=== PATIENT | female | born 1990 | race Caucasian/White ===

== ENCOUNTER 2024-12-20 15:42 | Emergency (ER) | payer BC, SELFPAY ==
--- OUTSIDE RECORDS SUMMARY | 2024-12-20 15:43 | XMS_ITS | Continuity of Care Document ---
Author Name [facility] Organization [facility] Care Team Providers Care Audio Visual Aids Director Name Role Phone [facility] Unavailable Unavailable Problems Combined list of problems from Department of Defense and Veterans Affairs facilities. It does not include entries that were removed or entered in error. 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 Pt received 3rd shot on 12 FEB 2013. Vaccine Information: Name: RabAvert Lot #: [id number] Expiration Date: 12/2014 Pt has successfully completed the prophylactic rabies vaccination series and does not require any additional clinic visits of vaccinations at this time. Pt instructed to return to clinic for any adverse reactions related to the vaccine. Pt verbalized understanding and was discharged in stable condition. DoD bursitis prepatellar Inactive Condition BURSITIS PREPATELLAR: Pt educated on RICE and using NSAID and tylenol, told to discontinue Motrin while on celebrex. Pt verbalized understanding. Pt to RTC if pain persists or becomes worse. DoD gingival recession Inactive Condition G INGIVAL RECESSION: Possibly due to food that got stuck previously, no major defect, Pt managable on NSAIDs. DoD visit for: services physical pre-deployment Active Condition DoD open wound of foot Inactive Condition Do D abdominal pain Inactive Condition abdom inal pain: Pt was given a GI cocktail consisting of viscous lidocaine, pepto bismal, and donnatol. Pt''s symptoms were relieved post ingestion, no issues. Pt was also given Prilosec 20mg PO for reflux. Pt to RTC if symptoms return or become worse. DoD ankle joint pain Active Condition DoD visit for: issue repeat prescription for medication Inactive Condition DoD visit for: screening mental / developmental disorders Inactive Condition DoD visit for: screening exam viral disease Inactive Condition DoD Need For Vaccination Against Combinations Of Diseases Inactive Condition DoD skin disorders appendage hair follicle folliculitis Inactive Condition DoD visit for: screening exam for malignant neoplasm cervix Inactive Condition DoD routine pelvic exam Inactive Condition DoD hidradenitis suppurativa Inactive Condition DoD Patient Counseling: Inactive Condition DoD visit for: occupational health / fitness exam Active Condition DoD refractive error - myopia Active Condition DoD visit for: services physical Inactive Condition DoD assess patient condition work-related occupational disease Active Condition DoD visit for: ears / hearing exam Active Condition DoD Patient Education - Injury Prevention Active Condition DoD visit for: administrative purpose Inactive Condition DoD visit for: routine eye exam Inactive Condition DoD visit for: laboratory Inactive Condition DoD visit for: screening exam pulmonary tuberculosis Inactive Condition DoD Need For Vaccination Against Td Inactive Condition DoD Need For Vaccination Polio Inactivated Inactive Condition DoD Need For Vaccination Against Bacterial Diseases Inactive Condition DoD Need For Vaccination Against Influenza Inactive Condition DoD Need For Vaccination Hepatitis B Inactive Condition DoD Need For Vaccination Hepatitis A Inactive Condition DoD Need For Prophylactic Antibiotics Inactive Condition DoD Allergies, Adverse Reactions, Alerts Combined list of allergies from Department of Defense and Veterans Affairs facilities. It does not include entries that were removed or entered in error. Substance Category Reaction Severity Reaction type Status Date Reported Comments Source PENICILLINS Drug allergy (disorder ) Unknown active 9 [facility] Immunizations Combined list of available immunizations from the Department of Defense and Veterans Affairs facilities. Immunization Series Date Given Administered By Site Reaction Lot Number CVX Code Drug Entry Level Receptionist Status Comments Source COVID-19 (PFIZER), MRNA, LNP-S, PF, 30 MCG/0.3 ML DOSE 2 2020 208 complet ed PFR; [id number]; 1 [facility] COVID-19 (PFIZER), MRNA, LNP-S, PF, 30 MCG/0.3 ML DOSE 1 2020 208 complet ed PFR; [id number]; 1 [facility] anthrax vaccine 6 2016 [id number] [employer] [place] (MIP) complet ed anthrax vaccine DoD Influenza, seasonal, injectable, preservative free 1 2015 [id number] Seqirus (SEQ) comple t ed Influenza , seasonal, injectabl e, preservat sheri free DoD meningococcal polysaccharid e (groups A, C, Y and W-135) diphtheria toxoid conjugate vaccine (MCV4P) 1 2015 [id number] 114 Sanofi Pasteur (PMC) complet ed meningoco ccal polysacch aride (groups A, C, Y and W-135) diphtheri a toxoid conjugate vaccine (MCV4P) DoD anthrax vaccine 5 2014 [id number] 24 [facility] ([facility]) complet ed anthrax vaccine DoD Influenza, seasonal, injectable, preservative free 1 2014 [id number] 140 [facility] [employer]. (CS) complet ed Influenza , seasonal, injectabl e, preservat sheri free DoD poliovirus vaccine, inactivated 1 2014 [id number] 10 Sanofi Pasteur (PMC) complet ed polioviru s vaccine, inactivat ed DoD rabies vaccine, for intramuscular injection RETIRED CODE 3 2014 [id number] 18 Novartis Hyper Weartica StockCast[employer] Marci. (NOV) complet ed rabies vaccine, for intramusc ular injection RETIRED CODE DoD anthrax vaccine 4 2014 [id number] 24 [facility] ([facility]) complet ed anthrax vaccine DoD typhoid Vi capsular polysaccharid e vaccine 1 2014 [id number] 101 Sanofi Pasteur ([facility]) complet ed typhoid Vi capsular polysacch aride vaccine DoD Influenza, seasonal, injectable, preservative free 1 2013 [id number] 140 Novartis Corsa Technology Marci. (NOV) complet ed Influenza , seasonal, injectabl e, preservat sheri free DoD influenza, live, intranasal, quadrivalent 1 2012 [id number] 149 TRONICS GROUP. (MED) complet ed influenza , live, intranasa l, quadrival ent DoD anthrax vaccine 3 2012 [id number] 24 [facility] ([facility]) complet ed anthrax vaccine DoD rabies vaccine, for intramuscular injection RETIRED CODE 2 2012 [id number] 18 Novartis Hyper Weartica StockCast[employer] Marci. (NOV) complet ed rabies vaccine, for intramusc ular injection RETIRED CODE DoD vaccinia (smallpox) vaccine 1 2012 UNK 75 (GENE) complet ed vaccinia (smallpox ) vaccine DoD rabies vaccine, for intramuscular injection RETIRED CODE 1 2012 [id number] 18 Novartis Peerflix. (NOV) complet ed rabies vaccine, for intramusc ular injection RETIRED CODE DoD anthrax vaccine 2 2012 [id number] [facility]) complet ed anthrax vaccine DoD vaccinia (smallpox) vaccine 1 2012 [id number] 75 (GENE) complet ed vaccinia (smallpox ) vaccine DoD anthrax vaccine 1 2011 [id number] 24 [facility] ([facility]) complet ed anthrax vaccine DoD typhoid Vi capsular polysaccharid e vaccine 1 2011 [id number] 101 Sanofi Pasteur (PMC) complet ed typhoid Vi capsular polysacch aride vaccine DoD Influenza, seasonal, injectable 1 2011 [id number] 141 [employer]. (CSL) complet ed Influenza , seasonal, injectabl e DoD hepatitis A and hepatitis B vaccine 3 2010 [id number] 104 SmithKline (SKB) complet ed hepatitis A and hepatitis B vaccine DoD influenza virus vaccine, live, attenuated, for intranasal use 1 2010 [id number] 111 [employer]ONICS GROUP. (MED) complet ed influenza virus vaccine, live, attenuate d, for intranasa l use DoD hepatitis A and hepatitis B vaccine 2 2010 [id number] 104 SmithKline (SKB) complet ed hepatitis A and hepatitis B vaccine DoD poliovirus vaccine, inactivated 1 2010 [id number] 10 Sanofi Pasteur (PMC) complet ed polioviru s vaccine, inactivat ed DoD influenza virus vaccine, split virus (incl. purified surface antigen)-reti red CODE 1 2010 [id number] 15 Unknown (UNK) comple t ed influenza virus vaccine, split virus (incl. purified surface antigen)- retired CODE DoD varicella virus vaccine 1 2010 UNK 21 Unknown (UNK) Not Given varicella virus vaccine DoD hepatitis A and hepatitis B vaccine 1 2010 [id number] 104 SmithKline (SKB) complet ed hepatitis A and hepatitis B vaccine DoD meningococcal polysaccharid e (groups A, C, Y and W-135) diphtheria toxoid conjugate vaccine (MCV4P) 1 2010 [id number] 114 Sanofi Pasteur (PMC) complet ed meningoco ccal polysacch aride (groups A, C, Y and W-135) diphtheri a toxoid conjugate vaccine (MCV4P) DoD tetanus toxoid, reduced diphtheria toxoid, and acellular pertu is vaccine, adsorbed 1 2010 [id number] 115 Moore (AD) complet ed tetanus toxoid, reduced diphtheri a toxoid, and acellular pertussis vaccine, adsorbed DoD measles, mumps and rubella virus vaccine 1 2010 UNK 03 Unknown (UNK) Not Given measles, mumps and rubella virus vaccine DoD yellow fever vaccine 1 2008 UNK 37 Unknown (UNK) comple t ed yellow fever vaccine DoD Encounters Combined list of: 1) Encounters from Department of Veterans Affairs facilities going backup to the last 18 months, not all VA inpatient encounters are included; 2) Encounters from the Department of Defense facilities going backup to 280 months. Location Location Details Encounter Type Encounter Number Reason For Visit Attending Provider ADM Date DC Date Status Disposition Source [facility] ISIDRO Alvarez(Tunnel Kiln Repairer al [facility] 005) OUTPATIENT [id number] Ronnie TROY Hackett 12/22 Released w/o Limitations [facility] ISIDRO Toro(Inte rnal Medicin e Clinic 57) [facility] EDVIN Flores(Soldie r Readiness Program Center) OUTPATIENT [id number] inproce ssing/t wn rx/flu/ mgc/ipv /tdap/p pd/hcg/ g6pd/hi v/jonathanio CHARLEE Benito 08/30 [facility]ased w/o Limitations [facility] EDVIN Flores(Sold ier Readine ss Program Center) [facility] [place] EDVIN Flores(IEP Hearing Conservat ion Exam) OUTPATIENT [id number] YOEL AYALA 08/30 Released w/o Limitations [facility] [place] [facility] EDVIN Flores(IEP Hearing Conserv ation Exam) [facility] [place] [facility] EDVIN Flores(IEP Optometry ) OUTPATIENT [id number] AKUA TODD 09/14 Released w/o Limitations [facility] [place] [facility] EDVIN Flores(IEP Optomet ry) [facility] [place] [place](Civil Defense Support Team) OUTPATIENT [id number] [facility] 501/11- RESP CLEARAN MANDA ESCALANTE 10/19 Released w/o Limitations [facility] [place] [facility] [place]Civ[place] Defense Support [place]) [facility] [place] [facility] [place]Civil [place] Support [place]) OUTPATIENT [id number] [facility] 501/11 MED-MON ITORING TINGLE, ADOLFO L 10/27 Released w/o Limitations [facility] [place] [facility] [place] [facility] [place] [facility] [place]) OUTPATIENT [id number] [facility] 501/11 Med Monitor ing AMELIA REAL L. 11/06 Released w/o Limitations [facility] [place] [facility] [place] [facility] [place] [facility] [place]) OUTPATIENT [id number] [place] [address]/11 Med Monitor ing TINGLE, ADOLFO L 11/07 Released w/o Limitations [facility] [place] [facility] [place]) [facility] [place] [facility] [place]1CDTF[place] OUTPATIENT [id number] CDTF Screeni MANDA Godwin 11/14 Released w/o Limitations [facility] [place] [facility] [place]1CDT F) [facility] [place]Serge[place]) OUTPATIENT [id number] OLEGARIO MEZA 12/04 Released w/o Limitations [facility] [place] [facility] [place]) [facility] [place] [facility] [place]Obst[place]ics/Gyne cology) OUTPATIENT [id number] NEEDS WWRANDY REYES 12/19 Released w/o Limitations [facility] [place] [facility] [place]Obst [place]/ Gynecol ogy) [facility] Medical Inprocess ing) OUTPATIENT [id number] [facility] KAIA CUTLER 01/18 Released w/o Limitations [facility] SUZANNE Nieves([facility] Medical Inproce ssing) [facility] [place]([facility] Dr) TELE CONSULT [id number] med refill MANDA MORIN 03/05 [facility] SUZANNE Nieves([facility] Dr) [facility] [place]Civil Defense Support Team) OUTPATIENT [id number] TE 13/06-- RESP CLEARAN CE MANDA PEOPLES 03/05 Released w/o Limitations [facility] [place] [place]) [facility] [place]) OUTPATIENT [id number] TECH ESCORT 13/06 MED MONITOR GAVINO MORGAN 03/12 Released w/o Limitations [facility] [place] [facility] [place]) [facility] [place] [facility] [place]) OUTPATIENT [id number] TE 13/06-- MED MONITOR AMELIA BROOKS. 03/20 Released w/o Limitations [facility] [place] [facility] [place] Support [place]) [facility] [place] [facility] [place]) OUTPATIENT [id number] TE 13/06-- MED MONITOR AMELIA BROOKS. 04/02 Released w/o Limitations [facility] [place]) [facility] SUZANNE Nieves([facility] Dr) OUTPATIENT [id number] right ankle pain MANDA MORIN 06/22 Released w/o Limitations [facility] MEDDAC SUZANNE [place]s([facility] Dr) [facility] [place](Hearin g Conservat ion) OUTPATIENT [id number] COURTNEY Mckeon 11/04 Released w/o Limitations [facility] MEDDAC SUZANNE [place](Hear ing Conserv ation) [facility] MED[facility] [place]([facility] Dr) OUTPATIENT [id number] abdomin al pain x4 days CLAY EVANS 11/14 Released w/o Limitations [facility] ANDRZEJDAC SUZANNE [place]([facility] Dr) [facility] MEDDAC SUZANNE [place]s([facility] Dr) OUTPATIENT [id number] ripped sole from both feet KATERINA OLIVAREZ 01/06 Released with Work/Duty Limitations [facility] Dr) [facility] Dr) TELE CONSULT [id number] Notes Entered by: JONAH ARAMBULA 12 May 2012 1134 ------- ------- ------- ------- -- Pt request ing meds refill for DicKAIA Gabriel 05/12 [facility] Dr) [facility] Dr[place] OUTPATIENT [id number] Notes Entered by: AGUILA LINO 25 Jun 2012 1309 ------- ------- ------- ------- -- MARK ANTHONY Lemon 06/25 Released w/o Limitations [place](Opto [place] Dr) [facility] [place] Primary Care) OUTPATIENT [id number] Notes Entered by: FRANCHESCA SANTACRUZ 26 Jun 2012 0623 ------- ------- ------- ------- -- [id number] TYRONE Al 06/26 Released w/o Limitations [facility] Primary [facility]) [facility] [place] Primary Care) OUTPATIENT [id number] Notes Entered by: PEPE ARRINGTON 20 Aug 2012 1313 ------- ------- ------- ------- -- Flu 04 Jun 2012 LARRY MILLER 08/20 Released w/o Limitations [facility] MEDDAC [place] Primary Care) [facility] OUTPATIENT [id number] Theater Provider 10/12 Released w/o Limitations [facility] OUTPATIENT [id number] Theater Provider 01/10 Released w/o Limitations [facility] OUTPATIENT [id number] Theater Provider 02/14 Released w/o Limitations [facility] OUTPATIENT [id number] Theater Provider 04/10 Released w/o Limitations Theater [facility] OUTPATIENT [id number] Theater Provider 04/12 Released w/o Limitations Theater [facility] [place] Primary Care) OUTPATIENT [id number] Notes Entered by: LESLIE FUCHS 09 Jun 2013 1230 ------- ------- ------- ------- -- [facility] KAIA CUTLER 06/09 Released w/o Limitations [facility] MED[facility] [place] Primary Care) [facility]Demet[place] car[place] Conserv[place] OUTPATIENT [id number] Notes Entered by: MELISSA LINDSEY 01 Jul 2013 0913 ------- ------- ------- ------- -- JOSE ANTONIO [place] 07/01 Released w/o Limitations [facility]ear kemi Conserv [place]ion) [facility] Primary Care[place] OUTPATIENT [id number] Notes Entered by: ROSS PINTO 05 Aug 2013 1034 ------- ------- ------- ------- -- JUAN JOSE Mcfadden 08/05 Released w/o Limitations [facility] MEDDAC [place] Primary Care) [facility] [place] Dr) OUTPATIENT [id number] WWE - PCM AMANDA Lauren 09/08 Released w/o Limitations [facility] [place] Dr) [facility] [place]) OUTPATIENT [id number] PADMINI Kelsey 11/17 Released w/o Limitations [facility] [place]Opt[place]) [place](AMHS01 CBlue) OUTPATIENT [id number] Poss BROOKS MEEHANOL 03/16 Released w/o Limitations [facility] [place] 01CBlue ) R. Stuart KHAN [place]AM[place] CBlue[place] OUTPATIENT [id number] menstru al issues RONYJUNAID LORELEI 06/08 Released w/o Limitations [facility] [place] 01CBlue ) [place]) OUTPATIENT [id number] YENNY PARK 07/08 Released w/o Limitations [facility] [place] Hearing [facility] ) [place] C[place] OUTPATIENT [id number] flu RONY JUNAID LORELEI 07/26 Released w/o Limitations Iraj [facility] [place] CBlue ) [place] OUTPAT[place] [id number] Notes Entered by: LAUREN MONTEMAYOR 02 Aug 2014 1017 ------- ------- ------- ------- -- KATHY MARTINEZ 08/02 Released w/o Limitations [facility] [place] [place]) [place]AM[place] C[place] OUTPATIENT [id number] GDBL per pt. anabel Braga (pt. has packet) RONYJUNAID LORELEI 08/03 Released w/o Limitations [facility] [place] 01CBlue ) [place] OUTPATIENT [id number] Notes Entered by: LAUREN MONTEMAYOR 15 Oct 2014 0847 ------- ------- ------- ------- -- KATHY MONIQUE 10/15 Released w/o Same[place] , [place]([facility]) [facility], [place]([facility]) OUTPATIENT [id number] Notes Entered by: SHASHANK PEREZ 27 Dec 2014 1127 ------- ------- ------- ------- -- 2795 JASON CARRANZA PA-C 12/27 Released w/o Limitations [facility], [place]([facility]) [facility], [place]([facility]) OUTPATIENT [id number] Notes Entered by: PAMELLA CRUZ 29 Mar 2015 1038 ------- ------- ------- ------- -- [id number] SINCERE Jonas 03/29 Released w/o Limitations [facility], FLO [place]([facility]) J Carlose dominique [facility], [email or web address] [place](Prim[facility]) OUTPATIENT [id number] FLU SYMPTOM S 5 GRP NELSON PA 04/28 Released w/o Limitations [facility], [place](Prim tressa Care [facility] 5) [facility] [facility], [facility] [[email or web address]] [place](Prim[facility]) TELE CONSULT [id number] Notes Entered by: TREY SARGENT 27 Jul 2015 0922 ------- ------- ------- ------- -- Labs for hx of anemia and hair loss TREY SARGENT 07/27 [facility] [place]([facility]) [facility], [facility] [[email or web address]] [place](Prim[facility]) OUTPATIENT [id number] f/u lab work/09/23 OMAR HAMMOND T 08/24 Released w/o Limitations [facility], [place], [place]([facility]) [facility], [place] [facility]) TELE CONSULT [id number] Notes Entered by: OMAR HAMMOND Iftikhar 29 Aug 2015 1409 ------- ------- ------- ------- -- Lab Results OMAR HAMMOND Iftikhar 08/29 [facility] [place] [place]) [facility], [place] [facility] TELE CONSULT [id number] Notes Entered by: OMAR HAMMOND Iftikhar 06 Sep 2015 1821 ------- ------- ------- ------- -- MRI and US results ELIZABETH AGUILERA 09/07 Released to Self Care [facility], [place]Prim [place]) [facility], [place]) OUTPATIENT [id number] annual KRYSTLE BABCOCK 09/29 Released w/o Limitations [facility], [place] ) [facility], [place]Manager [place] OUTPATIENT [id number] ADILENE KENNY 10/20 Released w/o Limitations [facility], [place] Clinic) Iraj KHAN [place]AMHS01 CBlue) TELE CONSULT [id number] Notes Entered by: MARTI HOLMAN 18 Nov 2015 1426 ------- ------- ------- ------- -- NETWORK RESULTS ENDO 11/03/19 16 ALURY SRIVASTAVA 11/17 [facility] [place]([facility] 01CBlue ) [facility], [place] Optometry ) OUTPATIENT [id number] EDELMIRA LAWRENCE 11/30 Released w/o Limitations [facility], [place] Optomet ry) [facility], [place] Optometry ) OUTPATIENT [id number] F/U DFE EDELMIRA MARQUEZ 12/05 Released w/o Limitations [facility], [place] Optomet ry) [facility], [place] Health Clinic) OUTPATIENT [id number] Notes Entered by: KATELIN REYNOLDS 31 May 2016 1248 ------- ------- ------- ------- -- JESS HUSSEIN 05/31 Released w/o Limitations [facility], [place]([facility] Health Clinic) [facility], [place] [place] [facility]) OUTPATIENT [id number] ADILENE [place] 06/25 Released w/o Limitations [facility], [employer] [place] [facility], [employer] [place]) TELE CONSULT [phone] JOSE ANTONIO WASHINGTON 07/31 [facility], [employer] [place]([facility]) [facility], [employer] [place] OUTPATIENT [id number] part 1 ets INZE RUIZ 09/25 Released w/o Limitations [facility], [employer]) [facility], [employer] [place]) OUTPATIENT [id number] RICARDO Cavazos 09/26 Released w/o Limitations [facility], [employer], [place]([facility] ) [facility], [place], [place]) OUTPATIENT [id number] Part 2 ETS; 3rd BAT JOSE ANTONIO WASHINGTON 10/01 Released w/o Limitations [facility], [place], [place]([facility]) [facility], [place]([facility] OUTPATIENT [id number] Initial Sleep eval KELSEA MENDIOLADESTINEE 10/31 Released w/o Limitations [facility], [place], [place]([facility]) Procedures Combined list of: 1) Procedures from Department of Veterans Affairs facilities going back up to thelast 18 months, not all VA non-surgical procedures are included; 2) All procedures from the Department of Defense facilities. Procedure Procedure Type Code Date Perfomer Comments Sourc e TAPE, WATERPROOF, PER 18 SQUARE INCHES 02/06/20 10 [facility] MEDICATION THERAPY MANAGEMENT SERVICE(S) PROVIDED BY A PHARMACIST, INDIVIDUAL, [id number] WITH PATIENT, WITH ASSESSMENT AND INTERVENTION IF PROVIDED; INITIAL 15 MINUTES, NEW PATIENT 12/23/19 09 [facility] SCREENING PAPANICOLAOU SMEAR; OBTAINING, PREPARING AND CONVEYANCE OF CERVICAL OR VAGINAL SMEAR TO LABORATORY 12/20/19 11 [facility] SCREENING TEST OF VISUAL ACUITY, QUANTITATIVE, BILATERAL 11/15/19 11 [facility] SCREENING TEST OF VISUAL ACUITY, QUANTITATIVE, BILATERAL 09/14/19 11 [facility] AUDIOMETRIC TESTING OF GROUPS 08/30/19 11 [facility] POLIOVIRUS VACCINE, INACTIVATED (IPV), FOR SUBCUTANEOUS OR INTRAMUSCULAR USE 08/30/19 11 [facility] PURE TONE AUDIOMETRY (THRESHOLD), AUTOMATED; AIR ONLY 09/27/19 17 [facility] SCREENING PAPANICOLAOU SMEAR; OBTAINING, PREPARING AND CONVEYANCE OF CERVICAL OR VAGINAL SMEAR TO LABORATORY 06/25/20 16 [facility] SCANNING COMPUTERIZED OPHTHALMIC DIAGNOSTIC IMAGING, POSTERIOR SEGMENT, WITH INTERPRETATION AND REPORT, UNILATERAL OR BILATERAL; OPTIC NERVE 12/06/19 16 [facility] DETERMINATION OF REFRACTIVE STATE 12/01/19 16 [facility] PURE TONE AUDIOMETRY (THRESHOLD), AUTOMATED; AIR ONLY 09/30/19 16 [facility] VIS FUNCT SCREEN,AUTOMAT/SEMI- AUTOMAT BILAT QUANT DETERM VISUAL ACUITY,OCULAR ALIGN,COLOR VISION,PSEUDOISOCHRO MAT PLATES,& FIELD VIS (MAY INC ALL/SOME SCRN DETERM FOR CONTRAST SENSITIV,VIS UND GLARE) 10/16/19 15 [facility] VIS FUNCT SCREEN,AUTOMAT/SEMI- AUTOMAT BILAT QUANT DETERM VISUAL ACUITY,OCULAR ALIGN,COLOR VISION,PSEUDOISOCHRO MAT PLATES,& FIELD VIS (MAY INC ALL/SOME SCRN DETERM FOR CONTRAST SENSITIV,VIS UND GLARE) 08/02/19 15 [facility] PURE TONE AUDIOMETRY (THRESHOLD), AUTOMATED; AIR ONLY 07/08/20 14 [facility] URINE TEST, BY VISUAL COLOR COMPARISON METHODS 03/16/20 14 [facility] FITTING OF SPECTACLES, EXCEPT FOR APHAKIA; MONOFOCAL 11/18/19 14 [facility] SCREENING PAPANICOLAOU SMEAR; OBTAINING, PREPARING AND CONVEYANCE OF CERVICAL OR VAGINAL SMEAR TO LABORATORY 09/09/19 14 [facility] PURE TONE AUDIOMETRY (THRESHOLD); AIR ONLY 07/01/20 13 [facility] COLLECTION OF VENOUS BLOOD BY VENIPUNCTURE 06/09/20 13 [facility] INFLUENZA VIRUS VACCINE, TRIVALENT (IIV3), SPLIT VIRUS, 0.5 ML DOSAGE, FOR INTRAMUSCULAR USE 08/20/19 13 [facility] ANTHRAX VACCINE, FOR SUBCUTANEOUS OR INTRAMUSCULAR USE 08/01/19 13 [facility] SKIN TEST; TUBERCULOSIS, INTRADERMAL 06/26/20 12 [facility] FITTING OF SPECTACLES, EXCEPT FOR APHAKIA; MONOFOCAL 06/25/20 12 [facility] DEBRIDEMENT OF EXTENSIVE ECZEMATOUS OR INFECTED SKIN; UP TO 10% OF BODY SURFACE 01/07/20 12 [facility] EAR PROTECTOR ATTENUATION MEASUREMENTS 11/05/19 12 [facility] INFLUENZA VIRUS VACCINE, TRIVALENT, LIVE (LAIV3), FOR INTRANASAL USE 06/28/20 11 [facility] HEPATITIS A AND HEPATITIS B VACCINE (HEPA-HEPB), ADULT DOSAGE, FOR INTRAMUSCULAR USE 06/18/20 11 [facility] COLLECTION OF VENOUS BLOOD BY VENIPUNCTURE 01/19/20 11 [facility] Threshold Audiogram (Pure Tone) Automated Threshold Audiogram (Pure Tone) Automated [id number] 09/27/19 17 RICARDO SEALS [facility] Screening papanicolaou smear; obtaining, preparing and conveyance of cervical or vaginal smear to laboratory 06/25/20 16 ADILENE COOPER [facility] Wet cammie, including preparations of vaginal, cervical or skin specimens 06/25/20 16 ADILENE COOPER [facility] Scanning Computerized Ophthalmic Diagnostic Imaging Optic Nerve Scanning Computerized Ophthalmic Diagnostic Imaging Optic Nerve 41922 12/07/19 16 EDELMIRA MARQUEZ [facility] Ophthalmological Prior Patient Start Intermediate Level Care Ophthalmological Prior Patient Start Intermediate Level Care 27399 12/07/19 16 EDELMIRA MARQUEZ Prescription And Fitting Bilateral Corneal Lenses (Not For Aphakia) Prescription And Fitting Bilateral Corneal Lenses (Not For Aphakia) 24681 12/01/19 16 EDELMIRA MARQUEZ [facility] Fitting Monofocal Except For Aphakia [facility] Fitting Monofocal Except For Aphakia 96313 12/01/19 16 EDELMIRA MARQUEZ Determination Of Refractive State Determination Of Refractive State 74692 12/01/19 16 EDELMIRA MARQUEZ Ophthalmological New Patient Start Comprehensive Care Ophthalmological New Patient Start Comprehensive Care 95889 12/01/19 16 EDELMIRA MARQUEZ Threshold Audiogram (Pure Tone) Automated Threshold Audiogram (Pure Tone) Automated 0208T 09/30/19 16 KRYSTLE BABCOCK Visual Function Screening Visual Function Screening 82045 10/16/19 15 KATHY MONTEMAYOR RANGER PHY DISTANCE VA'S WITH CORRECTION 20/20 NEAR VA'S WITH CORRECTION 20/20 OD: 20/300 OS: 20/300 COLOR TEST (PIP) 0/14 PASSED Joseph Visual Function Screening Visual Function Screening 85475 08/02/19 15 KATHY MONTEMAYOR AIRBORNE PHY DISTANCE VA'S WITH CORRECTION 20/20 NEAR VA'S WITH CORRECTION 20/20 OD: 20/300 OS: 20/300 COLOR TEST (PIP) 0/14 PASSED [facility] Threshold Audiogram (Pure Tone) Automated Threshold Audiogram (Pure Tone) Automated 0208T 07/08/20 14 YENNY BERRY Wet cammie, including preparations of vaginal, cervical or skin specimens 03/16/20 14 KAYLEN GIANG All pota ium hydroxide (michaela) preparations 03/16/20 14 KARINA GIANGAPHTAE Ruiz [facility] Fitting Monofocal Except For Aphakia [facility] Fitting Monofocal Except For Aphakia 81648 11/18/19 14 PADMINI LUIS Prescription And Fitting Bilateral Corneal Lenses (Not For Aphakia) Prescription And Fitting Bilateral Corneal Lenses (Not For Aphakia) 76189 11/18/19 14 PADMINI LUIS Ophthalmological Prior Patient Start Comprehensive Care Ophthalmological Prior Patient Start Comprehensive Care 99650 11/18/19 14 PADMINI LUIS [facility] Determination Of Refractive State Determination Of Refractive State 81496 11/18/19 14 PADMINI LUIS Cervical Pap Smear Cervical Pap Smear 06540 14 AMANDA IGNACIO Pap smear sample obtained from cervical os Patient tolerated procedure well [facility] Audiometry Group Testing Audiometry Group Testing 35042 07/02/20 13 JOSE ANTONIO CALDERÓN Threshold Audiogram (Pure Tone) Threshold Audiogram (Pure Tone) 95815 07/02/20 13 JOSE ANTONIO CALDERÓN Venipuncture Venipuncture 86668 06/09/20 13 KAIA CUTLER [facility] Influenza Split Virus Vaccine 0.5mL Dosage Intramuscular Preservative Free 06/09/20 13 KAIA CUTLER [facility] Immunization Administration By Injection, One Vaccine Immunization Administration By Injection, One Vaccine 13725 06/09/20 13 KAIA CUTLER [facility] Influenza Split Virus Vaccine 0.5mL Dosage Intramuscular 08/21/19 13 LARRY MILLER [facility] Immunization Administration By Injection, One Vaccine Immunization Administration By Injection, One Vaccine 75838 08/21/19 13 LARRY MILLER [facility] Skin Test Anergy Tuberculin Intradermal Skin Test Anergy Tuberculin Intradermal 92026 06/26/20 12 TYRONE DE LA GARZA [facility] [employer] [facility] Fitting Monofocal Except For Aphakia [facility] Fitting Monofocal Except For Aphakia 60338 06/25/20 12 MARK ANTHONY BUSTAMANTE [facility] Determination Of Refractive State Determination Of Refractive State 36605 06/25/20 12 [place] MARK ANTHONY [facility] Debridement Of Extensively Damaged / Diseased Skin Debridement Of Extensively Damaged / Diseased Skin 20114 01/07/20 12 KELVIN ZEPEDA [facility] Ear Protector Attenuation Measurements Ear Protector Attenuation Measurements 53057 11/05/19 12 COURTNEY ORTIZ [facility] Audiometry Group Testing Audiometry Group Testing 95712 11/05/19 12 COURTNEY ORTIZ [facility] Venipuncture Venipuncture 24674 01/19/20 11 JEIMY LEE Hepatitis A And Hepatitis B (Intramuscular Use) Adult Dosage Hepatitis A And Hepatitis B (Intramuscular Use) Adult Dosage 25821 01/19/20 11 JEIMY LEE Immunization Administration By Injection, One Vaccine Immunization Administration By Injection, One Vaccine 33242 01/19/20 11 JEIMY LEE [facility] Physician Supervised Specimen Handling / Transfer: Office To Lab Physician Supervised Specimen Handling / Transfer: Office To Lab 08164 11/15/19 11 DO KENYON [facility] Venipuncture Venipuncture 43184 11/15/19 11 DO KENYON [facility] Screening Test Of Visual Acuity, Quantitative, Bilateral Screening Test Of Visual Acuity, Quantitative, Bilateral 29124 11/15/19 11 DO KENYON [facility] Screening Test Of Visual Acuity, Quantitative, Bilateral Screening Test Of Visual Acuity, Quantitative, Bilateral 05709 09/15/19 11 CARLITA MITCHELL [facility] Determination Of Refractive State Determination Of Refractive State 29940 09/15/19 11 CARLITA MITCHELL [facility] [facility] Fitting Monofocal Except For Aphakia [facility] Fitting Monofocal Except For Aphakia 31647 09/15/19 11 CARLITA MITCHELL [facility] Audiometry Group Testing Audiometry Group Testing 63268 08/31/19 11 YOEL LAKHANI [facility] Immunization Administration By Injection, One Vaccine Immunization Administration By Injection, One Vaccine 68371 08/30/19 11 [facility] Hepatitis A And Hepatitis B (Intramuscular Use) Adult Dosage Hepatitis A And Hepatitis B (Intramuscular Use) Adult Dosage 62232 08/30/19 11 [facility] Immunization Administration By Injection, Each Additional Vaccine 08/30/19 11 [facility] Influenza Split Virus Vaccine 0.5mL Dosage Intramuscular 08/30/19 11 [facility] Meningococcal (A, C, Y, W-135) Oligosacch Diphtheria Toxoid Conj Vacc 08/30/19 11 [facility] Vaccines Viral Polio, Inactivated Vaccines Viral Polio, Inactivated 17855 08/30/19 11 [facility] Td Vaccine Seven Years Of Age And Above Td Vaccine Seven Years Of Age And Above 84353 08/30/19 11 [facility] Skin Test Anergy Tuberculin Intradermal Skin Test Anergy Tuberculin Intradermal 27224 08/30/19 11 [facility] Venipuncture Venipuncture 62619 08/30/19 11 [facility] Blood drawn for G6PD, HIV, HCG [facility] Screening Test Of Visual Acuity, Quantitative, Bilateral Screening Test Of Visual Acuity, Quantitative, Bilateral 87688 08/30/19 11 STEPHANIE CLAYTON See [facility] for vision exam results. [facility] Health Maint[facility] Unlisted Preventive Medicine Service 73691 08/30/19 11 STEPHANIE CLAYTON [facility] Medication Management By Pharmacist Initial 15 Minutes New Patient Medication Management By Pharmacist Initial 15 Minutes New Patient 19686 12/26/19 09 TROY CLINTON [facility] Social History Combined list of available smoking, tobacco, and other social history from Department of Defense and Veterans Affairs facilities. Social History Type Response Date Comment Sour e This section is an empty social history section. [facility]
--- OUTSIDE RECORDS SUMMARY | 2024-12-20 15:43 | XMS_ITS | Continuity of Care Document ---
Author Name [facility] Organization [facility] Care Team Providers Care Game Designer Name Role Phone [facility] Unavailable Unavailable Problems Combined list of problems from Department of Defense and Veterans Affairs facilities. It does not include entries that were removed or entered in error. 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 Pt received 3rd shot on 12 FEB 2013. Vaccine Information: Name: RabAvert Lot #: [id number] Expiration Date: 12/2014 Pt has successfully completed [...] Drug allergy (disorder ) Unknown active 9 [facility] Immunizations Combined list of available immunizations from the Department of Defense and Veterans Affairs facilities. Immunization Series Date Given Administered By Site Reaction Lot Number CVX Code Drug Principal Product Manager Status Comments Source COVID-19 (PFIZER), MRNA, LNP-S, PF, 30 MCG/0.3 ML DOSE 2 2020 208 complet ed PFR; [id number]; 1 [facility] COVID-19 (PFIZER), MRNA, LNP-S, PF, 30 MCG/0.3 ML DOSE 1 2020 208 complet ed PFR; [id number]; 1 [facility] anthrax vaccine 6 2016 [id number] [employer] [place] (MIP) complet ed anthrax vaccine DoD Influenza, seasonal, injectable, preservative free 1 2015 [id number] Seqirus (SEQ) comple t ed Influenza , seasonal, injectabl e, preservat sheri free DoD meningococcal polysaccharid e (groups A, C, Y and W-135) diphtheria toxoid conjugate vaccine (MCV4P) 1 2015 [id number] 114 Sanofi Pasteur (PMC) complet ed meningoco ccal polysacch aride (groups A, C, Y and W-135) diphtheri a toxoid conjugate vaccine (MCV4P) DoD anthrax vaccine 5 2014 [id number] 24 [facility] ([facility]) complet ed anthrax vaccine DoD Influenza, seasonal, injectable, preservative free [id number] [facility] [employer]teryx, Inc[employer] Inc. (CS) complet ed Influenza , seasonal, injectabl e, preservat sheri free DoD poliovirus vaccine, inactivated 1 2014 [id number] 10 Sanofi Pasteur (PMC) complet ed polioviru s vaccine, inactivat ed DoD rabies vaccine, for intramuscular injection RETIRED CODE 3 2014 [id number] 18 Novartis Better [employer] Marci. (NOV) complet ed rabies vaccine, for intramusc ular injection RETIRED CODE DoD anthrax vaccine 4 2014 [id number] 24 [facility] ([facility]) complet ed anthrax vaccine DoD typhoid Vi capsular polysaccharid e vaccine 1 2014 [id number] 101 Sanofi Pasteur ([facility]) complet ed typhoid Vi capsular polysacch aride vaccine DoD Influenza, seasonal, injectable, preservative free 1 2013 [id number] 140 Novartis [employer] Marci. (NOV) complet ed Influenza , seasonal, injectabl e, preservat sheri free DoD influenza, live, intranasal, quadrivalent 1 2012 [id number] 149 [employer]. (MED) complet ed influenza , live, intranasa l, quadrival ent DoD anthrax vaccine 3 2012 [id number] 24 [facility] ([facility]) complet ed anthrax vaccine DoD rabies vaccine, for intramuscular injection RETIRED CODE 2 2012 [id number] 18 Novartis Better [employer] Marci. (NOV) complet ed rabies vaccine, for intramusc ular injection RETIRED CODE DoD vaccinia (smallpox) vaccine 1 2012 UNK 75 (GENE) complet ed vaccinia (smallpox ) vaccine DoD rabies vaccine, for intramuscular injection RETIRED CODE 1 2012 [id number] 18 Novartis Dajie. (NOV) complet ed rabies vaccine, for intramusc ular injection RETIRED CODE DoD anthrax vaccine 2 2012 [id number] 24 [facility] ([facility]) complet ed anthrax vaccine DoD vaccinia (smallpox) vaccine 1 2012 [id number] 75 (GENE) complet ed vaccinia (smallpox ) vaccine DoD anthrax vaccine 1 2011 [id number] 24 [facility] ([facility]) complet ed anthrax vaccine DoD typhoid Vi capsular polysaccharid e vaccine 1 2011 [id number] 101 Sanofi Pasteur (PMC) complet ed typhoid Vi capsular polysacch aride vaccine DoD Influenza, seasonal, injectable 1 2011 [id number] 141 [employer] Inc. (CSL) complet ed Influenza , seasonal, injectabl e DoD hepatitis A and hepatitis B vaccine 3 2010 [id number] 104 SmithKline (SKB) complet ed hepatitis A and hepatitis B vaccine DoD influenza virus vaccine, live, attenuated, for intranasal use 1 2010 [id number] 111 [employer]. (MED) complet ed influenza virus vaccine, live, [...] purified surface antigen)-reti red CODE 1 2010 [id number] 15 Unknown (UNK) comple t ed influenza [...] diphtheria toxoid conjugate vaccine (MCV4P) 1 2010 [id number] 114 Sanofi Pasteur (PMC) complet ed meningoco ccal polysacch aride (groups A, C, Y and W-135) diphtheri a toxoid conjugate vaccine (MCV4P) DoD tetanus toxoid, reduced diphtheria toxoid, and acellular pertu is vaccine, adsorbed 1 2010 [id number] 115 Moore (AD) complet ed tetanus toxoid, [...] ADM Date DC Date Status Disposition Source [facility] ISIDRO Alvarez(Dowel Inspector al Medicine [facility] 005) OUTPATIENT [id number] Ronnie TROY Hackett 12/22 Released w/o Limitations [facility] ISIDRO Toro(Inte rnal Medicin e Clinic 57) [facility] EDVIN Flores(Soldie r Readiness Program Center) OUTPATIENT [id number] inproce ssing/t wn rx/flu/ mgc/ipv /tdap/p pd/hcg/ g6pd/hi v/jonathanio CHARLEE Benito 08/30 Released w/o Limitations [facility] EDVIN Flores(Sold ier Readine ss Program Center) [facility] EDVIN Flores(IEP Hearing Conservat ion Exam) OUTPATIENT [id number] YOEL AYALA 08/30 Released w/o Limitations [facility]t [facility] EDVIN Flores(IEP Hearing Conserv ation Exam) [facility] EDVIN Flores(IEP Optometry ) OUTPATIENT [id number] AKUA TODD 09/14 Released w/o Limitations [facility] [place] [facility] EDVIN Flores(IEP Optomet ry) [facility] [place] [facility] [place](Civil Defense Support Team) OUTPATIENT [id number] [facility] 501/11- RESP CLEARAN MANDA ESCALANTE 10/19 Released w/o Limitations [facility] [place] [facility] [place](Civ[place] Defense Support Team) [facility] [place] [facility] [place]Civil Defense Support [place]) OUTPATIENT [id number] [facility] 501/11 MED-MON ITORING TINGLE, ADOLFO L 10/27 Released w/o Limitations [facility] [place] [facility] [place] Support [place]) [facility] [place] [facility] [place]) OUTPATIENT [id number] [facility] 501/11 Med Monitor ing AMELIA REAL L. 11/06 Released w/o Limitations [facility] [place] [facility] [place] Support [place]) [facility] [place] [facility] [place]Civil [place] Support [place]) OUTPATIENT [id number] [place] [address]/11 Med Monitor ing TINGLE, ADOLFO L 11/07 Released w/o Limitations [facility] [place] [facility] [place]Civ[place] Defense Support Team) [facility] [place] [facility] [place]1CDTF[place] OUTPATIENT [id number] CDTF Screeni MANDA Godwin 11/14 Released w/o Limitations [facility] [place] [facility] [place], [place](1CDT F) [facility] [place]Serge[place]) OUTPATIENT [id number] OLEGARIO MEZA 12/04 Released w/o Limitations [facility] [place] [facility] [place](Vict [place]y) [facility] [place]Obstet [place]ics/Gyne cology) OUTPATIENT [id number] NEEDS WWRANDY REYES 12/19 Released w/o Limitations [facility] [place] [facility] [place]Obst [place]rics/ Gynecol ogy) [facility] Edmonds([facility] Medical Inprocess ing) OUTPATIENT [id number] [facility] KAIA CUTLER 01/18 Released w/o Limitations RUST SUZANNE Nieves([facility] Medical Inproce ssing) [facility]) TELE CONSULT [id number] med refill MANDA MORIN 03/05 [facility] SUZANNE Nieves([facility] Dr) [facility] [place]Civil Defense Support Team) OUTPATIENT [id number] TE 13/06-- RESP CLEARAN CE MANDA PEOPLES 03/05 Released w/o Limitations [facility] [place](Civ[place] Support [place]) [facility] [place]) OUTPATIENT [id number] TECH ESCORT 13/06 MED MONITOR GAVINO MORGAN 03/12 Released w/o Limitations [facility] [place]Civ[place] Support [place]) [facility] [place]) OUTPATIENT [id number] TE 13/06-- MED MONITOR AMELIA BROOKS. 03/20 Released w/o Limitations [facility] [place]Civ[place] Support [place]) [facility] [place]) OUTPATIENT [id number] TE 13/06-- MED MONITOR AMELIA BROOKS. 04/02 Released w/o Limitations [facility] [place]Civ[place] Defense Support Team) [facility] SUZANNE Nieves([facility] Dr) OUTPATIENT [id number] right ankle pain MANDA MORIN 06/22 Released w/o Limitations [facility] MEDDAC SUZANNE Edmonds([facility] Dr) [facility](Hearin g Conservat ion) OUTPATIENT [id number] COURTNEY Mckeon 11/04 Released w/o Limitations [facility] SUZANNE Edmonds(Hear ing Conserv ation) [facility] [address]elsi [address]([facility] Dr) OUTPATIENT [id number] abdomin al pain x4 days CLAY EVANS 11/14 Released w/o Limitations [facility]UST ANDRZEJDAC SUZANNE Edmonds([facility] Dr) [facility] SUZANNE Edmonds([facility] Dr) OUTPATIENT [id number] ripped sole from both feet KATERINA OLIVAREZ 01/06 Released with Work/Duty Limitations [facility]) [facility] [place]) TELE CONSULT [id number] Notes Entered by: JONAH ARAMBULA 12 May 2012 1134 ------- ------- ------- ------- -- Pt request ing meds refill for DicKAIA Gabriel 05/12 [facility]) [facility] [place]Optome [facility] OUTPATIENT [id number] Notes Entered by: AGUILA LINO 25 Jun 2012 1309 ------- ------- ------- ------- -- MARK ANTHONY Lemon 06/25 Released w/o Limitations [place](Opto metry Clinic Dr) [facility] [place] Primary Care) OUTPATIENT [id number] Notes Entered by: FRANCHESCA SANTACRUZ 26 Jun 2012 0623 ------- ------- ------- ------- -- [id number] 12 TYRONE Al 06/26 Released w/o Limitations [facility] [place] Primary Care) OUTPATIENT [id number] Notes Entered by: PEPE ARRINGTON 20 Aug 2012 1313 ------- ------- ------- ------- -- Flu 04 Jun 2012 LARRY MILLER 08/20 Released w/o Limitations [facility] [place] Primary Care) Theater Facility OUTPATIENT [id number] Theater Provider 10/12 Released w/o Limitations [facility] Facility OUTPATIENT [id number] Theater Provider 01/10 Released w/o Limitations Theater Fac[facility] OUTPATIENT [id number] Theater Provider 02/14 Released w/o Limitations Theater Fac[facility] Theater Facility OUTPATIENT [id number] Theater Provider 04/10 Released w/o Limitations Theater Fac[facility] y Theater [facility] OUTPATIENT [id number] Theater Provider 04/12 Released w/o Limitations Theater Facilit y [facility] [place] Primary Care) OUTPATIENT [id number] Notes Entered by: LESLIE FUCHS 09 Jun 2013 1230 ------- ------- ------- ------- -- [facility] KAIA CUTLER 06/09 Released w/o Limitations [facility] [place] Primary Care) [facility]Demetria carr Conservat ion[place] OUTPATIENT [id number] Notes Entered by: MELISSA LINDSEY 01 Jul 2013 0913 ------- ------- ------- ------- -- JOSE ANTONIO [place]uther[place] 07/01 Released w/o Limitations [facility] [place]ear kemi Conserv ation) [facility] [place] Primary Care) OUTPATIENT [id number] Notes Entered by: ROSS PINTO 05 Aug 2013 1034 ------- ------- ------- ------- -- JUAN JOSE Mcfadden 08/05 Released w/o Limitations [facility] [place] Primary Care) [facility] [place]) OUTPATIENT [id number] WWE - PCM AMANDA Lauren 09/08 Released w/o Limitations [facility] [place]) [facility] [place] [place] OUTPATIENT [id number] PADMINI Kelsey 11/17 Released w/o Limitations [facility] [place]Opt[place]) [place](AMHS01 CBlue) OUTPATIENT [id number] Poss BROOKS MEEHANOL 03/16 Released w/o Limitations [facility] [place] 01CBlue ) R. Stuart KHAN [place]AM[facility] CBlue[place] OUTPATIENT [id number] menstru al issues RONYJUNAID LORELEI 06/08 Released w/o Limitations [facility] [place] 01CBlue ) [place]) OUTPATIENT [id number] YENNY PARK 07/08 Released w/o Limitations RLuis K[facility] [place] Hearing [place] ) [place] C[place] OUTPATIENT [id number] flu ROYN JUNAID LORELEI 07/26 Released w/o Limitations [facility]j [facility] [place] CBlue ) [place]Luis [place] [place] OUT[place]IENT [id number] Notes Entered by: LAUREN MONTEMAYOR 02 Aug 2014 1017 ------- ------- ------- ------- -- KATHY MARTINEZ 08/02 Released w/o Limitations Iraj [facility] [place](Opt[place] metry Clinic) [place] C[place] OUTPATIENT [id number] GDBL per pt. anabel Braga (pt. has packet) RONYJUNAID LORELEI 08/03 Released w/o Limitations [facility] [place] 01CBlue ) [place] [place] OUT[place] [id number] Notes Entered by: LAUREN MONTEMAYOR 15 Oct 2014 0847 ------- ------- ------- ------- -- KATHY MONIQUE 10/15 Released w/o [place] , [place]([facility]) Bladianae ld [facility], [place]) OUTPATIENT [id number] Notes Entered by: SHASHANK PEREZ 27 Dec 2014 1127 ------- ------- ------- ------- -- 2795 JASON CARRANZA PA-C 12/27 Released w/o Limitations [facility], [place]([facility]) [facility], [place]([facility]) OUTPATIENT [id number] Notes Entered by: PAMELLA CRUZ 29 Mar 2015 1038 ------- ------- ------- ------- -- [id number] SINCERE Jonas 03/29 Released w/o Limitations [facility], FLO [place]([facility]) J Carlose dominique [facility], [facility] [place]Prim[facility]) OUTPATIENT [id number] FLU SYMPTOM S 5 GRP NELSON PA 04/28 Released w/o Limitations [facility], [place]i [place]o [place](Prim tressa Care [facility] 5) Mavericknchfie ld [facility], [facility] [place]Prim[place] [facility]) TELE CONSULT [id number] Notes Entered by: TREY SARGENT 27 Jul 2015 0922 ------- ------- ------- ------- -- Labs for hx of anemia and hair loss TREY SARGENT 07/27 [facility] [place]([facility]) [facility], [facility] [place]Prim[place] [facility] OUTPATIENT [id number] f/u lab work/09/23 OMAR HAMMOND T 08/24 Released w/o Limitations [facility], [place]Prim [place] [facility]) [facility]anch[facility] [facility], [place]Prim[place] [facility]) TELE CONSULT [id number] Notes Entered by: OMAR HAMMOND Iftikhar 29 Aug 2015 1409 ------- ------- ------- ------- -- Lab Results OMAR HAMMOND Iftikhar 08/29 [facility], [place] [place] [facility]) [facility] [facility], [place]Prim[place] [facility]) TELE CONSULT [id number] Notes Entered by: OMAR HAMMOND Iftikhar 06 Sep 2015 1821 ------- ------- ------- ------- -- MRI and US results ELIZABETH AGUILERA 09/07 Released to Self Care [facility], [place]Prim [place] Care [facility] 5) [facility] [facility], [place]) OUTPATIENT [id number] annual KRYSTLE BABCOCK 09/29 Released w/o Limitations [facility], [place] ) [place] [facility], [place]Press [place] OUTPATIENT [id number] ADILENE KENNY 10/20 Released w/o Limitations [facility], [place] Clinic) Iraj KHAN [place]AMHS01 CBlue) TELE CONSULT [id number] Notes Entered by: MARTI HOLMAN 18 Nov 2015 1426 ------- ------- ------- ------- -- NETWORK RESULTS ENDO 11/03/19 16 LAURY SRIVASTAVA 11/17 [facility] [place] 01CBlue ) [facility], [place] Optometry ) OUTPATIENT [id number] EDELMIRA LAWRENCE 11/30 Released w/o Limitations [facility], [place] Optomet ry) [facility], [place] Optometry ) OUTPATIENT [id number] F/U DFE EDELMIRA MARQUEZ 12/05 Released w/o Limitations [facility], [place] Optomet ry) [facility], [place] Health Clinic) OUTPATIENT [id number] Notes Entered by: KATELIN REYNOLDS 31 May 2016 1248 ------- ------- ------- ------- -- JESS HUSSEIN 05/31 Released w/o Limitations [facility], [place] Health Clinic) [facility], [place] [place] [facility] OUTPATIENT [id number] ADILENE MADISON 06/25 Released w/o Limitations [facility], [place] [facility], [place] S01A Legion) TELE CONSULT [id number] JOSE ANTONIO WASHINGTON 07/31 [facility], [place] S01A [facility]) [facility], [place] S01A [place] OUTPATIENT [id number] part 1 ets INEZ RUIZ 09/25 Released w/o Limitations [facility], [place] S01[place] [facility], [place] Hearing Program) OUTPATIENT [id number] RICARDO Cavazos 09/26 Released w/o Limitations [facility], [place] ) [facility] [facility], [place] S01A [place] OUTPATIENT [id number] Part 2 ETS; 3rd BAT JOSE ANTONIO WASHINGTON 10/01 Released w/o Limitations [facility], [place] S01A [place]) Theodorafie ld [facility], [place] OUTPATIENT [id number] Initial Sleep eval KELSEA MENDIOLADESTINEE 10/31 Released w/o Limitations [facility] i[facility], [place]Adrien E BH) Procedures Combined list of: 1) Procedures from Department of Veterans Affairs facilities going back up to thelast 18 months, not all VA non-surgical procedures are included; 2) All procedures from the Department of Defense facilities. Procedure Procedure Type Code Date Perfomer Comments Sourc e TAPE, WATERPROOF, PER 18 SQUARE INCHES 02/06/20 10 [facility] MEDICATION THERAPY MANAGEMENT SERVICE(S) PROVIDED BY A PHARMACIST, INDIVIDUAL, [id number] WITH PATIENT, WITH ASSESSMENT AND INTERVENTION IF PROVIDED; INITIAL 15 MINUTES, NEW PATIENT 12/23/19 09 [facility] SCREENING PAPANICOLAOU SMEAR; OBTAINING, PREPARING AND CONVEYANCE OF CERVICAL OR VAGINAL SMEAR TO LABORATORY 12/20/19 11 [facility] SCREENING TEST OF VISUAL ACUITY, QUANTITATIVE, BILATERAL 11/15/19 11 [facility] SCREENING TEST OF VISUAL ACUITY, QUANTITATIVE, BILATERAL 09/14/19 11 [facility] AUDIOMETRIC TESTING OF GROUPS 08/30/19 11 [facility] POLIOVIRUS VACCINE, INACTIVATED (IPV), FOR SUBCUTANEOUS OR INTRAMUSCULAR USE 08/30/19 11 [facility] PURE TONE AUDIOMETRY (THRESHOLD), AUTOMATED; AIR ONLY 09/27/19 17 [facility] SCREENING PAPANICOLAOU SMEAR; OBTAINING, PREPARING AND CONVEYANCE OF CERVICAL OR VAGINAL SMEAR TO LABORATORY 06/25/20 16 [facility] SCANNING COMPUTERIZED OPHTHALMIC DIAGNOSTIC IMAGING, POSTERIOR [...] FOR CONTRAST SENSITIV,VIS UND GLARE) 10/16/19 15 [facility] VIS FUNCT SCREEN,AUTOMAT/SEMI- AUTOMAT BILAT QUANT DETERM VISUAL ACUITY,OCULAR ALIGN,COLOR VISION,PSEUDOISOCHRO MAT PLATES,& FIELD VIS (MAY INC ALL/SOME SCRN DETERM FOR CONTRAST SENSITIV,VIS UND GLARE) 08/02/19 15 [facility] PURE TONE AUDIOMETRY (THRESHOLD), AUTOMATED; AIR ONLY 07/08/20 14 [facility] URINE TEST, BY VISUAL COLOR COMPARISON METHODS 03/16/20 14 [facility] FITTING OF SPECTACLES, EXCEPT FOR APHAKIA; MONOFOCAL 11/18/19 14 [facility] SCREENING PAPANICOLAOU SMEAR; OBTAINING, PREPARING AND CONVEYANCE OF CERVICAL OR VAGINAL SMEAR TO LABORATORY 09/09/19 14 [facility] PURE TONE AUDIOMETRY (THRESHOLD); AIR ONLY 07/01/20 13 [facility] COLLECTION OF VENOUS BLOOD BY VENIPUNCTURE 06/09/20 13 [facility] INFLUENZA VIRUS VACCINE, TRIVALENT (IIV3), SPLIT VIRUS, 0.5 ML DOSAGE, FOR INTRAMUSCULAR USE 08/20/19 13 [facility] ANTHRAX VACCINE, FOR SUBCUTANEOUS OR INTRAMUSCULAR USE 08/01/19 13 [facility] SKIN TEST; TUBERCULOSIS, INTRADERMAL 06/26/20 12 [facility] FITTING OF SPECTACLES, EXCEPT FOR APHAKIA; MONOFOCAL 06/25/20 12 [facility] DEBRIDEMENT OF EXTENSIVE ECZEMATOUS OR INFECTED SKIN; UP TO 10% OF BODY SURFACE 01/07/20 12 [facility] EAR PROTECTOR ATTENUATION MEASUREMENTS 11/05/19 12 [facility] INFLUENZA VIRUS VACCINE, TRIVALENT, LIVE (LAIV3), FOR INTRANASAL USE 06/28/20 11 [facility] HEPATITIS A AND HEPATITIS B VACCINE (HEPA-HEPB), ADULT DOSAGE, FOR INTRAMUSCULAR USE 06/18/20 11 [facility] COLLECTION OF VENOUS BLOOD BY VENIPUNCTURE 01/19/20 11 [facility] Threshold Audiogram (Pure Tone) Automated Threshold Audiogram (Pure Tone) Automated 0208T 09/27/19 17 RICAROD SEALS [facility] Screening papanicolaou smear; obtaining, preparing and conveyance of cervical or vaginal smear to laboratory 06/25/20 16 ADILENE COOPER [facility] Wet cammie, including preparations of vaginal, cervical or skin specimens 06/25/20 16 ADILENE COOPER [facility] Scanning Computerized Ophthalmic Diagnostic Imaging Optic Nerve Scanning Computerized Ophthalmic Diagnostic Imaging Optic Nerve 83651 12/07/19 16 EDELMIRA MARQUEZ Joseph Ophthalmological Prior Patient Start Intermediate Level Care Ophthalmological Prior Patient Start Intermediate Level Care 40266 12/07/19 16 EDELMIRA MARQUEZ Prescription And Fitting Bilateral Corneal Lenses (Not For Aphakia) Prescription And Fitting Bilateral Corneal Lenses (Not For Aphakia) 97148 12/01/19 16 EDELMIRA MARQUEZ Spectacles Services Fitting Monofocal Except For Aphakia Spectacles Services Fitting Monofocal Except For Aphakia 61175 12/01/19 16 EDELMIRA MARQUEZ Determination Of Refractive State Determination Of Refractive State 93172 12/01/19 16 EDELMIRA MARQUEZ Ophthalmological New Patient Start Comprehensive Care Ophthalmological New Patient Start Comprehensive Care 17298 12/01/19 16 EDELMIRA MARQUEZ Threshold Audiogram (Pure Tone) Automated Threshold Audiogram (Pure Tone) Automated 0208T 09/30/19 16 KRYSTLE BABCOCK Visual Function Screening Visual Function Screening 26145 10/16/19 15 KATHY MONTEMAYOR RANGER PHY DISTANCE VA'S WITH CORRECTION 20/20 NEAR VA'S WITH CORRECTION 20/20 OD: 20/300 OS: 20/300 COLOR TEST (PIP) 0/14 PASSED Joseph Visual Function Screening Visual Function Screening 39470 08/02/19 15 KATHY MONTEMAOYR AIRBORNE PHY DISTANCE VA'S WITH CORRECTION 20/20 NEAR VA'S WITH CORRECTION 20/20 OD: 20/300 OS: 20/300 COLOR TEST (PIP) 0/14 PASSED [facility] Threshold Audiogram (Pure Tone) Automated Threshold Audiogram (Pure Tone) Automated 0208T 07/08/20 14 YENNY BERRY Wet cammie, including preparations of vaginal, cervical or skin specimens 03/16/20 14 KAYLEN GIANG All pota ium hydroxide (michaela) preparations 03/16/20 14 KARINA GIANGAPHTAE Ruiz [employer] [facility] Fitting Monofocal Except For Aphakia Spectacles Services Fitting Monofocal Except For Aphakia 31247 11/18/19 14 PADMINI LUIS Prescription And Fitting Bilateral Corneal Lenses (Not For Aphakia) Prescription And Fitting Bilateral Corneal Lenses (Not For Aphakia) 72385 11/18/19 14 PADMINI LUIS Ophthalmological Prior Patient Start Comprehensive Care Ophthalmological Prior Patient Start Comprehensive Care 60082 11/18/19 14 PADMINI LUIS [facility] Determination Of Refractive State Determination Of Refractive State 72124 11/18/19 14 PADMINI LUIS Cervical Pap Smear Cervical Pap Smear 61945 14 AMANDA IGANCIO Pap smear sample obtained from cervical os Patient tolerated procedure well [facility] Audiometry Group Testing Audiometry Group Testing 15452 07/02/20 13 JOSE ANTONIO CALDERÓN Threshold Audiogram (Pure Tone) Threshold Audiogram (Pure Tone) 82986 07/02/20 13 JOSE ANTONIO CALDERÓN Venipuncture Venipuncture 06625 06/09/20 13 KAIA CUTLER [facility] Influenza Split Virus Vaccine 0.5mL Dosage Intramuscular Preservative Free 06/09/20 13 KAIA CUTLER [facility] Immunization Administration By Injection, One Vaccine Immunization Administration By Injection, One Vaccine 42641 06/09/20 13 KAIA CUTLER [facility] Influenza Split Virus Vaccine 0.5mL Dosage Intramuscular 08/21/19 13 LARRY MILLER [facility] Immunization Administration By Injection, One Vaccine Immunization Administration By Injection, One Vaccine 92420 08/21/19 13 LARRY MILLER [facility] Skin Test Anergy Tuberculin Intradermal Skin Test Anergy Tuberculin Intradermal 26088 06/26/20 12 TYRONE DE LA GARZA [facility] Spectacles Services Fitting Monofocal Except For Aphakia [employer]acles Services Fitting Monofocal Except For Aphakia 56880 06/25/20 12 MARK ANTHONY BUSTAMANTE [facility] Determination Of Refractive State Determination Of Refractive State 04917 06/25/20 12 MARLIN MARK ANTHONY [facility] Debridement Of Extensively Damaged / Diseased Skin Debridement Of Extensively Damaged / Diseased Skin 94676 01/07/20 12 KELVIN ZEPEDA [facility] Ear Protector Attenuation Measurements Ear Protector Attenuation Measurements 15704 11/05/19 12 COURTNEY ORTIZ [facility] Audiometry Group Testing Audiometry Group Testing 71009 11/05/19 12 COURTNEY ORTIZ [facility] Venipuncture Venipuncture 49578 01/19/20 11 JEIMY LEE Hepatitis A And Hepatitis B (Intramuscular Use) Adult Dosage Hepatitis A And Hepatitis B (Intramuscular Use) Adult Dosage 96545 01/19/20 11 JEIMY LEE Immunization Administration By Injection, One Vaccine Immunization Administration By Injection, One Vaccine 41795 01/19/20 11 JEIMY ELE [facility] Physician Supervised Specimen Handling / Transfer: Office To Lab Physician Supervised Specimen Handling / Transfer: Office To Lab 66655 11/15/19 11 DO KENYON [facility] Venipuncture Venipuncture 20823 11/15/19 11 DO KENYON [facility] Screening Test Of Visual Acuity, Quantitative, Bilateral Screening Test Of Visual Acuity, Quantitative, Bilateral 38512 11/15/19 11 DO KENYON [facility] Screening Test Of Visual Acuity, Quantitative, Bilateral Screening Test Of Visual Acuity, Quantitative, Bilateral 88708 09/15/19 11 CARLITA MITCHELL [facility] Determination Of Refractive State Determination Of Refractive State 97899 09/15/19 11 CARLITA MITCHELL [facility] Spectacles Services Fitting Monofocal Except For Aphakia Spectacles Services Fitting Monofocal Except For Aphakia 53001 09/15/19 11 CARLITA MITCHELL [facility] Audiometry Group Testing Audiometry Group Testing 00192 08/31/19 11 YOEL LAKHANI [facility] Immunization Administration By Injection, One Vaccine Immunization Administration By Injection, One Vaccine 49988 08/30/19 11 [facility] Hepatitis A And Hepatitis B (Intramuscular Use) Adult Dosage Hepatitis A And Hepatitis B (Intramuscular Use) Adult Dosage 36937 08/30/19 11 [facility] Immunization Administration By Injection, Each Additional Vaccine 08/30/19 11 [facility] Influenza Split Virus Vaccine 0.5mL Dosage Intramuscular 08/30/19 11 [facility] Meningococcal (A, C, Y, W-135) Oligosacch Diphtheria Toxoid Conj Vacc 08/30/19 11 [facility] Vaccines Viral Polio, Inactivated Vaccines Viral Polio, Inactivated 68077 08/30/19 11 [facility] Td Vaccine Seven Years Of Age And Above Td Vaccine Seven Years Of Age And Above 78977 08/30/19 11 [facility] Skin Test Anergy Tuberculin Intradermal Skin Test Anergy Tuberculin Intradermal 96802 08/30/19 11 [facility] Venipuncture Venipuncture 43313 08/30/19 11 [facility] Blood drawn for G6PD, HIV, HCG [facility] Screening Test Of Visual Acuity, Quantitative, Bilateral Screening Test Of Visual Acuity, Quantitative, Bilateral 30534 08/30/19 11 STEPHANIE CLAYTON See [facility] for vision exam results. [facility] Health Maint. Un[facility] Health Maint. Unlisted Preventive Medicine Service 12794 08/30/19 11 STEPHANIE CLAYTON [facility] Medication Management By Pharmacist Initial 15 Minutes New Patient Medication Management By Pharmacist Initial 15 Minutes New Patient 54227 12/26/19 09 TROY CLINTON [facility] Social History Combined list of available smoking, tobacco, and other social history from Department of Defense and Veterans Affairs facilities. Social History Type Response Date Comment Sour e This section is an empty social history section. [employer]
--- OUTSIDE RECORDS SUMMARY | 2024-12-20 15:44 | XMS_ITS | Data Portability ---
Author Organization [place] - [facility], [employer] - [employer] [facility] Address [address] [place] [address] Assessment Encounter Date Assessment Date Assessment LastModified by Organization Details LastModified Time 12/17/2024 12/17/2024 ASSESSMENT: Patient is a good candidate for conservative care and the prognosis is for a favorable outcome that achieves the patients' goals. We discussed etiology, activity modifications, home care, and other treatment options. Initially, it is recommended that the patient receive in-office treatment 1 times per week for 8 weeks at which time a re-evaluation will be performed to determine an appropriate change in plan. Initially, treatment will focus on joint manipulation to restore range of motion and reduce pain. We will slowly progress to therapeutic exercises and activities to improve function, strength, and stability may also be used as warranted. If the patient is not responding as expected, more invasive procedures will be discussed along with a referral. All considerations above were discussed with the patient and questions answered to satisfaction. If the patient should have any additional questions, or should the condition evolve or worsen, the patient should not hesitate to contact our office. [email or web address] Not available 12/17/2024 20:17:35 Plan of Treatment Reminders Order Date Submit Date Provider Last Modified By Organization Details Last Modified Time Details Appointments None record ed. Lab None record ed. Referral None record ed. Procedures None record ed. Surgeries None record ed. Imaging None record ed. Medication Orders None record ed. Patient TargetsNo targets recorded. Patient InstructionsNo instructions recorded. Reason for Referral None Reported. Problems Name Problem SNOMED Code Status Onset Date Resolution Date Notes Provider Name and Address Organization Details Recorded Time Somatic dysfunction of sacral spine 125859783 Active 2024 Feliciano Cooper DC [address], [place], [address], [place] [facility] 5 20:17:36 Thoracic segmental dysfunction 225164409 Active 2023 Mitesh Galo, LAURA [address], [place], [address], [place] [facility] 4 10:26:52 Low back pain 206367058 Active 2023 Mitesh Galo LAURA [address], [place], [address], [place] [facility] 4 10:26:52 Neck pain 53356277 Active 2023 Mitesh Gant Fredisgini LAURA [address], [place], [address], [place] [facility] 4 10:26:52 Cervical segmental dysfunction 974967312 Active 2023 Mitesh Gant FredisginiLAURA [address], [place], [address], [place] [facility] 4 10:26:52 Lumbar segmental dysfunction 872057387 Active 2023 Mitesh Gant FredisginiLAURA [address], [place], [address], [place] [facility] 4 10:26:52 Pain in thoracic spine 976420618 Active 2023 Mitesh Gant FredisginiLAURA [address], [place], [address], [place] [facility] 4 10:26:52 Problem Notes None recorded. Procedures Surgical History Date Name Laterality Status Provider Name and Address Organization Details Recorded Time 5 07025: Spinal manipulation , 3 to 4 regions completed Feliciano Cooper DC [address], [place], [address], [place] [facility] 12/17/2024 20:18:07 5 12617: Spinal manipulation , 3 to 4 regions completed Mitesh Galo DC [address], [place], [address], [facility] 10/09/2024 11:03:32 98187: Spinal manipulation , 3 to 4 regions completed Mitesh Galo DC [address], [place], [address], [facility] 07/13/2024 10:32:09 Imaging Results None recorded. Procedure Notes None recorded. Medical Equipment None Reported. Vitals None Recorded Social History None recorded. Functional Status None recorded. Mental Status None recorded. Family History Nothing Reported. Medical History No medical history recorded. Gynecological HistoryNo gynecological history recorded. Obstetrics History GPAL:G 0 P 0 0 0 0 Past Encounters Encounter ID Performer Location Encounter Start Date Encounter Closed Date Diagnosis/Indication Diagnosis SNOMED-CT Code Diagnosis ICD10 Code Diagnosis Note [id number] Mitesh Galo [place] [facility] [place] [facility] [address] [place] [address] 07/13/2024 10:04:42 07/13/2024 10:33:51 Cervical segmental dysfunction 342341098 M99.01 Neck pain 67008881 M54.2 Lumbar seg mental dysfunction 973677458 M99.03 Thoracic s egmental dysfunction 372077192 M99.02 Pain in th oracic spine 155333206 M54.6 [id number] [facility] [address] [place] [address] 10/09/2024 10:33:39 10/09/2024 11:33:50 Cervical segmental dysfunction 815662622 M99.01 Neck pain 39350337 M54.2 Lumbar seg mental dysfunction 193386345 M99.03 Thoracic s egmental dysfunction 403840658 M99.02 Pain in th oracic spine 147071703 M54.6 [id number] Feliciano Cooper DC [facility] & [address] [facility] [place] [address] 12/17/2024 09:18:54 12/17/2024 20:18:24 Lumbar segmental dysfunction 656132712 M99.03 Low back pain 328208560 M54.50 Somatic dy sfunction of sacral spine 117039468 M99.04 Thoracic s egmental dysfunction 176234050 M99.02 Health Concerns Section Related Observation LastModified by Organization Detai ls LastModified Time None Recorded Concern Status LastModified by Organization Details LastModified Time None Recorded Advance Directives Directive None Recorded Payers Encounter Date Sequence Insurance Name Policy Number Policy Sam Covered Member ID Sam Member ID Guarantor Name 07/13/2024 1 *SELF PAY* Be thany 10/09/2024 1 *SELF PAY* Be thany 12/17/2024 1 *SELF PAY* Be thany November Notes Date Note Type Note Provider Name and Address Organization Details Recorded Time 07/13/2024 text/html HPI - Spine ComplaintsReported bypatient.Location:cerv ical bilateral; thoracic midline; lumbar right Quality:sharp; stiffness Severity:pain level 5/10 Duration:3 days Timing:recurrent episode Context:overuse; unusual activity 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; 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:twisting; flexing back Mitesh Galo DC [address], [place], [address], [facility] 07/13/2024 10:32:58 10/09/2024 text/html HPI - Spine ComplaintsReported bypatient.Location:cerv ical bilateral; thoracic midline; lumbar right Quality:sharp; stiffness Severity:pain level 5/10 Duration:3 days Timing:recurrent episode Context:overuse; unusual activity 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
--- OUTSIDE RECORDS SUMMARY | 2024-12-20 15:44 | XMS_ITS | Continuity of Care Document ---
Author Organization [place] - [facility] Address [address] [place] [address] Assessment Encounter Date Assessment Date Assessment LastModified [...] Recorded Time Somatic dysfunction of sacral spine 210324710 Active 2024 Feliciano Cooper DC [address], [place], [address], [place] [facility] 5 20:17:36 Thoracic segmental dysfunction 779191342 Active 2023 Mitesh Galo, LAURA [address], [place], [address], [place] [facility] 4 10:26:52 Low back pain 348087566 Active 2023 Mitesh Galo LAURA [address], [place], [address], [place] [facility] 4 10:26:52 Neck pain 42927902 Active 2023 Mitesh Gant Fredisgini LAURA [address], [place], [address], [place] [facility] 4 10:26:52 Cervical segmental dysfunction 631520071 Active 2023 Mitesh Gant Fredisgini LAURA [address], [facility], [address], [place] [facility] 4 10:26:52 Lumbar segmental dysfunction 161218105 Active 2023 Mitesh Gant Fredisgini LAURA [address], [facility] [place], [address], [place] [facility] 4 10:26:52 Pain in thoracic spine 568658371 Active 2023 Mitesh Gant FredisginiLAURA [address], [facility] [place], [address], [place] [facility] 4 10:26:52 Problem Notes None recorded. Procedures Surgical History Date Name Laterality Status Provider Name and Address Organization Details Recorded Time 5 17379: Spinal manipulation , 3 to 4 regions completed Feliciano Cooper, LAURA [address], [place], [address], [place] [facility] 12/17/2024 20:18:07 5 97105: Spinal manipulation , 3 to 4 regions completed Mitesh Galo DC [address], [place], [address], [facility] 10/09/2024 11:03:32 18379: Spinal manipulation , 3 to 4 regions completed Mitesh Galo DC [address], [place], [address], [facility] 07/13/2024 10:32:09 Imaging Results None recorded. Procedure [...] SNOMED-CT Code Diagnosis ICD10 Code Diagnosis Note [id number] LAURA [facility] [address] [place] [address] [place] [address] 12/17/2024 09:18:54 12/17/2024 20:18:24 Lumbar segmental dysfunction 575014059 M99.03 Low back pain 171430958 M54.50 Somatic dy sfunction of sacral spine 401278625 M99.04 Thoracic s egmental dysfunction 174087243 M99.02 Health Concerns Section Related Observation LastModified by Organization Detai ls LastModified Time None Recorded Concern Status LastModified by Organization Details LastModified Time None Recorded Payers Encounter Date Sequence Insurance Name Policy Number Policy Sam Covered Member ID Sam Member ID Guarantor Name 12/17/2024 1 *SELF PAY* Be thany May Notes Date Note Type Note Provider Name and Address Organization Details Recorded Time 12/17/2024 text/html HPI - Lumbar SpineReported bypatient.Location: left Quality:aching Severity:moderate Timing:morning Aggravating Factors:walking; lifting; carrying; twisting 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 Feliciano Cooper DC [address], [place], [address], [facility] 12/17/2024 20:18:21 OBGyn Episode No OBEpisode recorded.
--- OUTSIDE RECORDS SUMMARY | 2024-12-20 15:44 | XMS_ITS | Clinical Summary ---
Author Organization [facility] Address [address] [address] Care Team Providers Care Horser Up Name Role Phone Priscilla Felton MD Primary Care Provider Source Comments You are receiving this document as you are listed as the primary care provider,follow-up provider, or the patient has been referred to you for consultation.This is in compliance with the Medicare and[facility] Campus[facility] EHR Incentive Program,which states Providers who transition their patient to another setting of careor provider of care or refers their patient to another provider of care shouldprovide summary care record for each transition of care or referral. [facility] Allergies Active Allergy Reactions Criticality Noted Date Comments Amoxicillin 02/05/2003 PN: LW Reaction: Rash, Generalized Penicillins 04/03/2007 Medications norethindrone ebony-ethinyl estradoil-FE (LOESTRIN FE .5) 1.5-30 MG-MCG tablet Take 1 tablet by mouth daily (every 24 hours). LW Comment:pt to pick-up today LW Addl Instr:Follow package directions. 84 12/03/2008 Active unknown medication Indications: PN: 03/30/2008 Active Resolved Problems Problem Noted Date Diagnosed Date Resolved Date Varicella 01/13/2004 03/14/2004 Overview (03/13/2017): LW Onset: [id number] ; Varicella Zoster Immunizations Immunization Administration Dates Next Due DTP 05/17/1993, 0,1988,09/24/18 89,1988 HepA Ped/Adol (1-18 yrs) 03/10/2005,10/15/2003 HepB Ped/Adol (0-18 yrs) 05/26/2001,01/24/2001,0 12/09/2000 Influenza, Unspecified Formulation 05/15/2003 MMR 12/13/2000,08/27/1989 OPV, Trivalent (Orimune or tOPV) 993,11/12/1989,1988,07/12/19 88 Td 05/24/2000 Social History Tobacco Use Types Packs/Day Years Used Date Smoking Tobacco: Never Comments Unknown Sex and Gender Information Value Date Recorded Sex Assigned at Not on file Legal Sex Female 1:09 PM CDT Gender Identity Not on file Sexual Orientation Not on file Last Filed Vital Signs Vital Sign Reading Time Taken Comments Blood Pressure 114/70 03/30/2008 2:23 PM CDT Pulse - - Temperature 36.9 C (98.4 F) 04/03/2007 9:27 AM CDT C: 36.9 C Respiratory Rate - - Oxygen Saturation - - Inhaled Oxygen Concentration - - Weight 54 kg (118 lb 15.7 oz) 03/30/2008 2:23 PM CDT C: 54.0kg Height 167 cm (5' 5.75) 12/03/2007 9:31 AM CDT C: 167.0cm Body Mass Index 19.35 12/03/2007 9:31 AM CDT Plan of Treatment Health Maintenance Due Date Last Done Comments Hep C Screening (Preventive Services) 1988 HIV Screening (Preventive Services) 2004 Adult Preventive Visit 2006 Cervical Cancer Screening Due 03/31/2008 03/30/2008 COVID-19 Vaccine ( season) 2024 11/04/2020, 10/14/2020 Influenza Vaccine (Season Ended) 2025 05/03/2022, 05/14/2020, 04/16/2019, Additional history exists DTaP/Tdap/Td Vaccine (9 - Tdap) 09/01/2029 09/01/2019, 06/11/2017, 08/30/2010, Additional history exists Zoster/Shingles Vaccine (1 of 2) 2038 IPV (Polio) Vaccine Completed 05/17/1993, 11/12/1989, 1988, Additional history exists HepB Vaccine Completed 05/26/2001, 12/2000, 12/09/2000 HepA Vaccine Completed 03/10/2005, 10/15/2003 HPV Vaccine Aged Out No longer eligi ble based on patient's age to complete this topic Hib Vaccine Aged Out No longer eligi ble based on patient's age to complete this topic MCV4 Vaccine Aged Out No longer eligi ble based on patient's age to complete this topic Meningococcal B Vaccine Aged Out No l onger eligible based on patient's age to complete this topic Pneumococcal Vaccine Aged Out No long er eligible based on patient's age to complete this topic Procedures Procedure Name Priority Date/Time Associated Diagnosis Comments ANATOMICAL PATH LIQUID BASED Routine 03/30/2008 2:59 PM CDT from Last 3 Months or Most Recently Relevant to Health Maintenance Results * Pap Smear (03/30/2008 2:59 PM CDT) PAP Smear Liquid Based SEE TEXT No normal range HP CONVERSION Comment: Patient: BAM PAZ CERVICAL CYTOLOGY REPORT Pathology # [id number] Date Obtained: Date Received: CYTOLOGIC IMPRESSION: Negative for intraepithelial lesion or malignancy. Verified 04/02/08 by: JRJ (electronic signature) ADDITIONAL DATA LMP: CLINICAL HIST LIQUID BASED PAP CERVICAL SPECIMEN ADEQUACY: Satisfactory. ENDOCERVICAL CELLS: Present. 03/30/2008 2:59 PM CDT us Gloria Carrillo MD LAB_1 Final Result HP CONVERSION from Last 3 Months or Most Recently Relevant to Health Maintenance Insurance [facility] [place] [address] Care Teams Horser Up Relationship Specialty Start Date End Date Priscilla Felton MD [address] [place] [id number] PCP - General 10/23/10
--- OUTSIDE RECORDS SUMMARY | 2024-12-20 15:45 | XMS_ITS | Data Portability ---
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 [facility] Address [address] [facility] [address] [facility] [address] [place] [address] Assessment Encounter Date Assessment Date Assessment LastModified [...] Recorded Time Somatic dysfunction of sacral spine 739326156 Active 2024 Feliciano Cooper DC [address] [facility], [place], [address], [place] [facility] 5 20:17:36 Thoracic segmental dysfunction 966430976 Active 2023 Mitesh Galo, LAURA [address] [facility], [place], [address], [place] [facility] 4 10:26:52 Low back pain 029970266 Active 2023 Mitesh Galo LAURA [address] [facility], [place], [address], [place] [facility] 4 10:26:52 Neck pain 00265030 Active 2023 Mitesh Gant Fredisgini LAURA [address] [facility], [place], [address], [place] [facility] 4 10:26:52 Cervical segmental dysfunction 393151390 Active 2023 Mitesh Gant FredisginiLAURA [address] [facility], [place], [address], [place] [facility] 4 10:26:52 Lumbar segmental dysfunction 738139154 Active 2023 Mitesh Gant FredisginiLAURA [address] [facility], [place], [address], [place] [facility] 4 10:26:52 Pain in thoracic spine 098489691 Active 2023 Mitesh Gant FredisginiLAURA [address] [facility], [place], [address], [place] [facility] 4 10:26:52 Problem Notes None recorded. Procedures Surgical History Date Name Laterality Status Provider Name and Address Organization Details Recorded Time 5 59756: Spinal manipulation , 3 to 4 regions completed Feliciano Cooper DC [address] [facility] [address], [place], [address], [place] [facility] 12/17/2024 20:18:07 5 [address]203: Spinal manipulation , 3 to 4 regions completed Mitesh Galo DC [address] [facility] [address], [place], [address], [facility] 10/09/2024 11:03:32 [address]32[address]: Spinal manipulation , 3 to 4 regions completed Mitesh Galo DC [address] [facility] [address], [place], [address], [facility] 07/13/2024 10:32:09 Imaging Results None recorded. Procedure [...] SNOMED-CT Code Diagnosis ICD10 Code Diagnosis Note [id number] Mitesh Galo DC [facility] & [address] [place] [address] 07/13/2024 10:04:42 07/13/2024 10:33:51 Cervical segmental dysfunction 290829748 M99.01 Neck pain 87671872 M54.2 Lumbar seg mental dysfunction 353330123 M99.03 Thoracic s egmental dysfunction 028151139 M99.02 Pain in th oracic spine 828235619 M54.6 [id number] [facility] & [address] [place] [address] 10/09/2024 10:33:39 10/09/2024 11:33:50 Cervical segmental dysfunction 254117936 M99.01 Neck pain 57921431 M54.2 Lumbar seg mental dysfunction 562954369 M99.03 Thoracic s egmental dysfunction 795198443 M99.02 Pain in th oracic spine 694119039 M54.6 [id number] Feliciano Cooper DC 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:twisting; flexing back Mitesh Galo DC [address] [facility] [address], [address], [facility] 07/13/2024 10:32:58 10/09/2024 text/html HPI - Spine ComplaintsReported bypatient.Location:cerv ical bilateral; thoracic midline; lumbar right Quality:sharp; stiffness Severity:pain level 5/10 Duration:3 days Timing:recurrent episode Context:overuse; unusual activity 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
[2024-12-20 16:11] VITALS: BP 149/98; PULSE 99; RESP 20; TEMP 37.1; O2SAT 100; BMI 22.5
--- NOTE | 2024-12-20 16:24 | CRLHL7_ITS ---
For Patients: As a result of the Century Cures Act, medical imaging exams and procedure reports are released immediately into your electronic medical record. You may view this report before your referring provider. If you have questions, please contact your health care provider. INDICATION: Abnormal vaginal bleeding in early . TECHNIQUE: Transabdominal and transvaginal limited obstetric ultrasound examination of the pelvis was performed. Transvaginal ultrasound images were obtained for improved evaluation of the endometrial stripe and ovaries. Grayscale and color Doppler images were obtained. COMPARISON: None. FINDINGS: Uterus: Normal in echotexture. No suspicious masses. Endometrium: No significant endometrial free fluid. Intrauterine gestation: Yes. cardiac activity: Yes. 155 bpm. Mccool-rump length: 6.5 cm. Estimated gestational age of 12 weeks and 6 days. Yolk sac: Normal. Perigestational hemorrhage: Hypoechogenic subchorionic hemorrhage along the inferior uterus measuring 3.2 x 1.4 x 5.3 cm. There is a 2nd larger subchorionic hemorrhage measuring 3.5 x 3.2 x 2.8 cm. The placental edge appears lifted, a component of placental abruption can not be excluded. Estimated sonographic due date: 06/28/2025. Cul-de-sac: No free fluid. IMPRESSION: 1. Large subchorionic hemorrhages measuring up to 5.3 cm. The placental edge appears lifted, a component of placental abruption can not be excluded. Advise close obstetric evaluation and follow-up. 2. Single viable intrauterine with estimated gestational age of 9 weeks and 4 days. Dictated by Dewey Orr MD @ 12/20/2024 7:15:47 PM (Electronically Signed)
--- NOTE | 2024-12-20 17:25 | ED.PREGNANCY ---
HPI - General Chief complaint: Vaginal Bleeding Stated complaint: 9 weeks preg. heavy bleeding Time Seen by Provider: 12/20/24 16:14 History of Present Illness HPI Narrative: This 34-year-old female comes in stating that she had sudden gush of blood vaginally and a little bit of cramping. She states that she is 9 weeks with her 3rd . She had an ultrasound assessment within the last week that showed everything to be normal. She arrives here with normal vital signs and states that she is not having any further symptoms. Related Data Home Medications ?Medication ?Instructions ?Recorded ?Confirmed No Known Home Medications 12/20/24 12/20/24 Allergies Allergy/AdvReac Type Severity Reaction Status Date / Time amoxicillin Allergy Mild Verified 12/20/24 16:10 Penicillins Allergy Mild Rash Verified 12/20/24 16:10 Review of Systems Status of ROS: Reports: 10 or more systems reviewed and unremarkable except as noted in History and below Narrative: Constitutional: No fevers, no weight gain or loss. Eyes: No discharge. No vision changes. HENT: No congestion, no sore throat, no ear pain. Cardiovascular: No chest pain, no palpitations. Respiratory: No shortness of breath, no wheezes, no cough. Gastrointestinal: No vomiting, no diarrhea. A few crampy abdominal pains. Genitourinary: No dysuria, no hematuria. Musculoskeletal: Normal range of motion. Skin: No rashes, no pruritis. Neurological: No dizziness, weakness, sensory change, speech change. Endo/Heme/Allergies: No bruising or bleeding. No polydipsia. Pysch: no suicidality, no anxiety, no insomnia. All other systems reviewed and are negative. Exam Narrative: Exam Narrative: Constitutional: Well-developed, well-nourished, no acute distress. HEENT: Normocephalic, atraumatic. Neck: Normal range of motion. Nontender. Supple. Heart: Regular. No murmurs. Normal rate. Intact distal pulses. Lungs: Clear to auscultation. No chest discomfort. No wheezes, rhonchi, or rales. Abdomen: Normal bowel sounds. No rebound tenderness. Genitalia: Deferred. Back: No midline tenderness. Normal range of motion. Extremities: Normal range of motion. No injury. Skin: Intact. No rash. Warm. No erythema or pallor. Neurologic: No altered sensation. No weakness. Alert and oriented. Psychiatric: No suicidality. No anxiety or depression. No insomnia. Nursing notes and vitals signs are reviewed. Const: Vital Signs, click to edit/add: Vital Signs - 24 hr 12/20/24 16:11 Temperature 98.8 F Pulse Rate [Pulse Oximeter] 99 Respiratory Rate 20 Blood Pressure [Ri ght Upper Arm] 149/98 H Pulse Oximetry 100 Oxygen Delivery Me thod Room Air Course Vital Signs Vital signs: Initial Vital Signs Temperature 98.8 F 12/20/24 16:11 Temperature Source Temporal Artery Scan 12/20/24 16:11 Pulse Rate 99 12/20/24 16:11 Respiratory Rate 20 12/20/24 16:11 Blood Pressure 149/98 H 12/20/24 16:11 Blood Pressure Mean 115 H 12/20/24 16:11 Pulse Oximetry 100 12/20/24 16:11 Oxygen Delivery Method Room Air 12/20/24 16:11 Vital Signs Temperature 98.8 F 12/20/24 16:11 Pulse Rate 99 12/20/24 16:11 Respiratory Rate 20 12/20/24 16:11 Blood Pressure 149/98 H 12/20/24 16:11 Pulse Oximetry 100 12/20/24 16:11 Oxygen Delivery Method Room Air 12/20/24 16:11 Temperature 98.8 F 12/20/24 16:11 Pulse Rate 99 12/20/24 16:11 Respiratory Rate 20 12/20/24 16:11 Blood Pressure 149/98 H 12/20/24 16:11 Pulse Oximetry 100 12/20/24 16:11 Oxygen Delivery Method Room Air 12/20/24 16:11 MDM - OB/Uterine Contractions MDM Narrative Medical decision making narrative: This patient comes in with symptoms that are suspicious for subchorionic hemorrhage. A transvaginal ultrasound is obtained and does show evidence of such. She has a an intrauterine that is about 9 weeks gestation. The patient is reassured with these results. She is okay to be discharged home and encouraged to follow up with her Ob physician as scheduled and needed. Discharge Plan Discharge Clinical Impression: Subchorionic hemorrhage Patient Disposition: Home, Self-Care Condition: Stable Additional Instructions: Continue current plans. Follow up with OB as scheduled and needed. Return if worsening. Prescriptions: No Action No Known Home Medications Follow Up/Referrals: Romi Moran MD [Primary Care Provider, Family Practice] Stand Alone Forms: [employer] Info Instructions
--- OUTSIDE RECORDS SUMMARY | 2024-12-20 17:42 | XMS_ITS | Clinical Summary ---
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 0 7 Active Qmaza-6-MJB-EPA -Fish Oil 1,000 mg (120 mg-180 mg) cap Take 1 capsule by mouth. 0 8 Active cholecalciferol (VITAMIN D) 1,000 unit capsule Take 1 capsule by mouth once daily. 0 8 Active no115/iron/foli c acid ( 19 ORAL) Take by mouth. Active diphenhydramine HCl (UNISOM (DIPHENHYDRAMIN E) ORAL) Take by mouth. Active biotin 1,000 mcg chew Take by mouth. 0 8 12/18/19 25 Discontinu ed(*Patien t states no longer taking) Active Problems Problem Noted Date Diagnosed Date Pap smear for cervical cancer screening 11/14/19 24 Overview (11/14/2023): 10/2023 NIL/HPV Negative Plan: HPV-based testing due in 5 years Family history of diabetes mellitus (DM) 017 Estimated Date of Delivery Comme nts Yes 07/21/2025 Based on last me nstrual period of 10/14/2024 (Approximate) Resolved Problems Problem Noted Date Diagnosed Date Resolved Date Supervision of other normal 09/01/2019 01/12/2020 04/17/2019 01/12/2020 Overview (10/21/2019): Estimated Date of Delivery: None noted. Patient's last menstrual period was 02/11/2019 (exact date). Last Tdap- 09/01/2019 Last Flu vaccine- 04/16/2019 Glucose (GTT) result- Component Latest Ref Rng & Units 09/01/2019 HEMOGLOBIN 12.0 - 16.0 g/dL 11.8 (L) MCV 80 - 100 fL 90 GLUCOSE,GESTATIONAL 65 - 139 mg/dL 101 TREPONEMA PALLIDUM Negative Negative 20 week US: FINDINGS: Sonographic imaging demonstrates a single living intrauterine gestation. Fetus demonstrates a regular cardiac rate of 160 beats per minute. Fetus has a vertex position. The placenta lies anteriorly without evidence of placenta previa. Amniotic fluid volume appears normal. Single deepest vertical pocket: 4.5 cm. The cervix is not visualized. The composite ultrasound gestational age is calculated at 20 weeks 2 days with an estimated sonographic due date of 11/18/2019 Allergies Allergen Reactions Amoxicillin Rash Penicillins Rash OB History Para Term AB Living 2 0 0 0 0 0 SAB TAB Ectopic Multiple Live Births 0 0 0 0 0 # Outcome Date GA Lbr Leo/2nd Weight Sex Delivery Anes PTL Lv 2 Current 1 Create lab flowsheet for OB labs- Component Latest Ref Rng & Units 04/16/2019 04/16/2019 04/16/2019 10:23 AM 10:23 AM 10:23 AM RUBELLA IGG ANTIBODY Positive 8.91 HEMOGLOBIN 12.0 - 16.0 g/dL 12.9 MCV 80 - 100 fL 88 ANTIBODY SCREEN Negative Negative SPECIMEN EXPIRATION DATE/TIME 04/19/19 23:59 TREPONEMA PALLIDUM Negative Negative HBSAG Nonreactive Nonreactive HIV-1/HIV-2 ANTIBODY Non-Reactive Non-Reactive ABORH O Rh Positive Past Medical History: . Date Disease of thyroid gland Normal TSH, elevated T4 Irritable bowel Pap smear for cervical cancer screening 06/2016 Normal per pt Past Surgical History: . Laterality Date TONSILLECTOMY No data on file. Problems (from 04/16/19 to present) No problems associated with this episode. EDUARDO Rasmussen.....04/17/2019 8:32 AM Encounter for supervision of normal first in third trimester 02/04/2017 11/24/2018 Overview (11/12/2019): Component Latest Ref Rng & Units 09/01/2019 10/20/2019 HEMOGLOBIN 12.0 - 16.0 g/dL 11.8 (L) MCV 80 - 100 fL 90 TREPONEMA PALLIDUM Negative Negative Vaginal/Rectal OB Strep B PCR Negative MAYA change to 08/23/17 based on 11wk ultrasound Estimated Date of Delivery: 08/23/17 No LMP recorded. Patient is . Last Tdap- 06/11/2017 Last Flu vaccine- not on file Glucose- Component Latest Ref Rng & Units 09/01/2019 HEMOGLOBIN 12.0 - 16.0 g/dL 11.8 (L) MCV 80 - 100 fL 90 GLUCOSE,GESTATIONAL 65 - 139 mg/dL 101 Allergies Allergen Reactions Amoxicillin Rash Penicillins Rash Obstetric History T0 L0 SAB0 TAB0 Ectopic0 Multiple0 Live Births0 # Outcome Date GA Lbr Leo/2nd Weight Sex Delivery Anes PTL Lv 1 Current Component Latest Ref Rng & Units 01/31/2017 01/31/2017 01/31/2017 11:25 AM 11:25 AM 11:25 AM WHITE BLOOD COUNT 4.5 - 11.0 thou/cu mm 9.6 RED BLOOD COUNT 4.00 - 5.20 mil/cu mm 4.13 HEMOGLOBIN 12.0 - 16.0 g/dL 13.0 HEMATOCRIT 33.0 - 51.0 % 36.5 MCV 80 - 100 fL 88 MCH 26.0 - 34.0 pg 31.5 MCHC 32.0 - 36.0 g/dL 35.6 RDW 11.5 - 15.5 % 11.9 PLATELET COUNT 140 - 440 thou/cu mm 293 MPV 6.5 - 11.0 fL 9.5 NEUTROPHILS 42.0 - 72.0 % LYMPHOCYTES 20.0 - 44.0 % MONOCYTES <12.0 % EOSINOPHILS <8.0 % BASOPHILS <3.0 % ABSOLUTE NEUTROPHILS 1.7 - 7.0 thou/cu mm ABSOLUTE LYMPHOCYTES 0.9 - 2.9 thou/cu mm ABSOLUTE MONOCYTES <0.9 thou/cu mm ABSOLUTE EOSINOPHILS <0.5 thou/cu mm ABSOLUTE BASOPHILS <0.3 thou/cu mm SODIUM 135 - 145 mmol/L POTASSIUM 3.5 - 5.0 mmol/L CHLORIDE 98 - 110 mmol/L CO2,TOTAL 21 - 31 mmol/L ANION GAP 5 - 18 GLUCOSE 65 - 100 mg/dL CALCIUM 8.5 - 10.5 mg/dL BUN 8 - 25 mg/dL CREATININE 0.57 - 1.11 mg/dL BUN/CREAT RATIO 10 - 20 GFR if >60 ml/min/1.73m2 GFR if not >60 ml/min/1.73m2 ABORH O Rh Positive ANTIBODY SCREEN Negative Negative SPECIMEN EXPIRATION DATE/TIME 02/03/17 23:59 RUBELLA IGG ANTIBODY Positive 9.26 HIV-1/HIV-2 ANTIBODY Non-Reactive Non-Reactive HBSAG Nonreactive Nonreactive TREPONEMA PALLIDUM Negative Negative HEMOGLOBIN A1C SCREENING <6.4 % 5.0 GLUCOSE,RANDOM 65 - 140 mg/dL 80 TSH 0.35 - 4.94 uIU/mL 1.09 T3,TOTAL 58 - 159 ng/dL 142 T4,FREE 0.70 - 1.80 ng/dL 1.18 GLUCOSE,GESTATIONAL 65 - 139 mg/dL Component Latest Ref Rng & Units 03/30/2017 06/11/2017 07/01/2017 WHITE BLOOD COUNT 4.5 - 11.0 thou/cu mm 8.6 11.1 (H) RED BLOOD COUNT 4.00 - 5.20 mil/cu mm 3.99 (L) 3.68 (L) HEMOGLOBIN 12.0 - 16.0 g/dL 12.1 11.3 (L) 11.7 (L) HEMATOCRIT 33.0 - 51.0 % 35.9 33.1 MCV 80 - 100 fL 90 90 91 MCH 26.0 - 34.0 pg 30.3 30.7 MCHC 32.0 - 36.0 g/dL 33.7 34.1 RDW 11.5 - 15.5 % 12.7 12.6 PLATELET COUNT 140 - 440 thou/cu mm 269 303 MPV 6.5 - 11.0 fL 10.4 9.5 NEUTROPHILS 42.0 - 72.0 % 75.8 (H) LYMPHOCYTES 20.0 - 44.0 % 16.6 (L) MONOCYTES <12.0 % 6.9 EOSINOPHILS <8.0 % 0.5 BASOPHILS <3.0 % 0.2 ABSOLUTE NEUTROPHILS 1.7 - 7.0 thou/cu mm 8.4 (H) ABSOLUTE LYMPHOCYTES 0.9 - 2.9 thou/cu mm 1.8 ABSOLUTE MONOCYTES <0.9 thou/cu mm 0.8 ABSOLUTE EOSINOPHILS <0.5 thou/cu mm 0.1 ABSOLUTE BASOPHILS <0.3 thou/cu mm 0.0 SODIUM 135 - 145 mmol/L 139 POTASSIUM 3.5 - 5.0 mmol/L 3.6 CHLORIDE 98 - 110 mmol/L 106 CO2,TOTAL 21 - 31 mmol/L 22 ANION GAP 5 - 18 11 GLUCOSE 65 - 100 mg/dL 78 CALCIUM 8.5 - 10.5 mg/dL 8.9 BUN 8 - 25 mg/dL 8 CREATININE 0.57 - 1.11 mg/dL 0.75 BUN/CREAT RATIO 10 - 20 11 GFR if >60 ml/min/1.73m2 >60 GFR if not >60 ml/min/1.73m2 >60 ABORH ANTIBODY SCREEN Negative SPECIMEN EXPIRATION DATE/TIME RUBELLA IGG ANTIBODY HIV-1/HIV-2 ANTIBODY Non-Reactive HBSAG Nonreactive TREPONEMA PALLIDUM Negative Negative HEMOGLOBIN A1C SCREENING <6.4 % GLUCOSE,RANDOM 65 - 140 mg/dL TSH 0.35 - 4.94 uIU/mL T3,TOTAL 58 - 159 ng/dL T4,FREE 0.70 - 1.80 ng/dL GLUCOSE,GESTATIONAL 65 - 139 mg/dL 127 Component Latest Ref Rng & Units 07/30/2017 Culture No Group B Streptococcus isolated. Past Medical History: Diagnosis Date Disease of thyroid gland Normal TSH, elevated T4 Irritable bowel Pap smear for cervical cancer screening 06/2016 Normal per pt Past Surgical History: Procedure Laterality Date TONSILLECTOMY No data on file. MAYA 09/01/2017 Problems (from 01/31/17 to present) Problem Noted Resolved Encounter for supervision of normal first in third trimester 02/04/2017 by Anabelle Epstein CNM No Overview Signed 02/06/2017 11:05 AM by Romi Reeves CNM MAYA change to 08/23/17 based on 11wk ultrasound EDUARDO Rasmussen.....07/03/2017 8:18 AM Encounters Date Type Department Care Team Description 12/18/2024 1:50 PM CDT Nurse/Clinic Staff Only [facility] [address] [place] [address] Lab 12/17/2024 8:50 AM CDT OB Encounter [facility] [address] [place] [address] Romi Moran MD Care (Aprox 9w 1d LMP 10/14/24 (unsure of exact date)) 12/17/2024 Orders Only [facility] [address] [place] [address] Romi Moran MD Lab 12/17/2024 Travel from Last 3 Months Immunizations Immunization Administration Dates Next Due COVID-19 VACCINE SPIKEVAX (M ODERNA 50MCG/0.5ML) 12YO+ PFS 05/27/2023 COVID-19 vaccine (Pfizer-Bio NTech 30mcg/0.3mL) PF MDV 11/04/2020,10/14/2020 Influenza Virus, Unspecified 05/31/2016, 03/29/2015,04/29/2014,2012,06/04/2012,08/30/2010 Influenza, IIV4 05/27/2023,,05/14/2020,2018 Tdap 09/01/2019,06/11/2017 Tdap, Unspecified 08/30/2010 Family History Medical History Relation Name Comments Insulin resistance Father Cancer-breast Maternal Grandmother Good Health Mother Diabetes Paternal Grandmother Hypertension Paternal Grandmother Stroke Paternal Grandmother Relation Name Status Comments Father Alive Maternal Grandfather Maternal Grandmother Mother Alive Paternal Grandfather Paternal Grandmother Social History Tobacco Use Types Packs/Day Years Used Date Smoking Tobacco: Never Smokeless Tobacco: Never Tobacco Cessation:Counseling Given: Yes Alcohol Use Standard Drinks/Week Comments Not Currently 1 (1 standard drink = 0.6 oz pur e alcohol) PHQ-2 Answer Date Recorded PHQ-2 TOTAL SCORE 0 12/17/2024 Social Connections Answer Date Recorded Do you often feel lonely or isolated from those around you? 0 12/17/2024 Financial Resource Strain Answer Date R ecorded Difficulty of Paying Living Expenses 3 12/17/2024 Difficulty of Paying Living Expenses Not on file 12/17/2024 Food Insecurity Answer Date Recorded Do you worry your food will run out before you are able to buy more? 1 12/17/2024 Transportation Needs Answer Date Record ed Does lack of transportation keep you from medica l appointments? 1 12/17/2024 Does lack of transportation keep you from work, meetings or getting things that you need? 1 12/17/2024 Housing Stability Answer Date Recorded What is your housing situation today? 1 12/17/2024 Utilities Answer Date Recorded Do you have trouble paying f or utilities (for example, heat, electricity, water, phone)? 1 12/17/2024 Estimated Date of Delivery Comme nts Yes 07/21/2025 Based on last me nstrual period of 10/14/2024 (Approximate) Sex and Gender Information Value Date Recorded Sex Assigned at Not on file Legal Sex Female 3:29 PM CDT Gender Identity Not on file Sexual Orientation Not on file Occupation Industry Job Start Date Job End Date Not on file Not on file Not on file Not on file Obstetrics History Para Term AB IAB SAB Ectopic Multiple Livin g Live Births 3 2 2 2 2 Date Outcome GA Total Labor Labor/2nd/3rd Weight Sex Type Anes PTL Janki A1 A5 Name Clin 2017 Term 41w 5d 3.66 kg (8 lb 1 oz) M Vag Epidur al N Livin g [place] t Tappe r Complications:None Delivery Location:[facility] 2019 Term 40w 1d 5h 45m 3.45 kg (7 lb 9.5 oz) F Vag Epidur al N Livin g [place] r Complications:None Delivery Location:[facility] Current Summary Episode Dates Number of Fetuses Estimated Date of Delivery 12/17/2024 - Present (12/20/2024) 07/21/2025 (set by Romi Moran MD on 12/17/2024 based on Last Menstrual Period on 10/14/2024 (Approximate)) Dating Summary Based On MAYA GA Diff Last Menstrual Period on 10/14/2024 (Approximate ) 07/21/2025 Working Vitals Pregravid Weight Height TWG (As of 12/20/2024) Pregrav id BMI 1.67 m (5' 5.75) Notes Progress Notes - OB Encounte r - 12/17/2024 - GA:9w1d 12/17/2024 - 9w1d - Romi Moran MD FIRST OB VISIT HPI: Eloina Fatima is a 34 y.o. female at Unknown with macias intrauterine here today for a initial OB exam. Estimated Date of Delivery: 07/21/25 based on LMP. Had a short/light period that one, so is not clear on dating. Has noted increased vaginal odor. Wonders about possible bacterial vaginosis? Nausea/Vomiting: yes Breast tenderness: yes Fatigue: yes Bleeding: no Taking vitamins: yes Options of sequential screen, cell-free DNA testing, amniocentesis were discussed. Patient is interested in pursuing testing. AMA: yes Previous : no OB History Para Term AB Living 3 2 2 2 SAB IAB Ectopic Multiple Live Births 2 # Outcome Date GA Lbr Leo/2nd Weight Sex Type Anes PTL Lv 3 Current 2 Term 11/19/19 40w1d 3.45 kg (7 lb 9.5 oz) F Vag EPIDURAL N JANKI 1 Term 09/04/17 41w5d 3.66 kg (8 lb 1 oz) M Vag EPIDURAL N JANKI Past Medical History: . Date Disease of thyroid gland Normal TSH, elevated T4 Irritable bowel Past Surgical History: . Laterality Date TONSILLECTOMY Family History Problem Relation Age of Onset Good Health Mother Insulin resistance Father Cancer-breast Maternal Grandmother Diabetes Paternal Grandmother Stroke Paternal Grandmother Hypertension Paternal Grandmother Social History Tobacco Use Smoking status: Never Smokeless tobacco: Never Substance Use Topics Alcohol use: Not Currently Alcohol/week: 1.0 standard drink of alcohol Types: 1 Standard drinks or equivalent per week Current Outpatient Medications Medication Sig biotin 1,000 mcg chew Take by mouth. cholecalciferol (VITAMIN D) 1,000 unit capsule Take 1 capsule by mouth once daily. diphenhydramine HCl (UNISOM (DIPHENHYDRAMINE) ORAL) Take by mouth. lactobacillus comb no.10 (PROBIOTIC) 20 billion cell cap Take by mouth. Hcatc-6-HGK-EPA-Fish Oil 1,000 mg (120 mg-180 mg) cap Take 1 capsule by mouth. no115/iron/folic acid ( 19 ORAL) Take by mouth. No current facility-administered medications for this visit. Medications have been reviewed by me and are current to the best of my knowledge and ability. ALLERGIES Amoxicillin and Penicillins MENTAL HEALTH HISTORY History of psychiatric diagnosis: None Current mental health provider: not applicable Currently taking any psychiatric medications? Not Applicable INFECTION HISTORY Current Drug Use: none Relevant infection history from OB Questionnaire: none REVIEW OF SYSTEMS Comprehensive ROS complete and negative other than noted in HPI and on OB Questionnaire. PHYSICAL EXAM BP 118/78 (Cuff Site: Right Arm, Position: Sitting, Cuff Size: Adult Regular) Pulse 77 Ht 1.67 m (5' 5.75) Wt 61.5 kg (135 lb 9.6 oz) LMP 10/14/2024 (Approximate) SpO2 100% BMI 22.05 kg/m General Appearance: Alert, appropriate appearance for age. No acute distress. HEENT Exam: Grossly normal. Neck/Thyroid Exam: Supple, no masses, nodes or enlargement. Lungs: Clear to auscultation bilaterally. Breast Exam: Not indicated. Cardiovascular Exam: Regular rate and rhythm. S1, S2, no murmur. Abd: Soft, non-tender, no masses or organomegaly. Skin: no rashes or lesions. Lymphatics: no nodes palpable. Psychiatric Exam: Alert and oriented x 3, appropriate affect. Pelvic Exam: not indiacted ASSESSMENT/PLAN 34 y.o. at Unknown with macias intrauterine . ICD-10-CM 1. Initial obstetric visit in first trimester (HC) Z34.91 CBC AND DIFFERENTIAL RUBELLA IMMUNE STATUS TREPONEMA PALLIDUM ABORH TYPE ANTI HIV 1/2 URINE CULTURE [64209.2] US OB 1ST TRI SINGLE TA URINALYSIS MICROSCOPIC [23598.1] - routine ANTIBODY SCREEN HBSAG (HBS) ANTI HBC LC VARICELLA-ZOSTER V AB, IGG TRICHOMONAS, YUAN, AND BACTERIAL VAGINOSIS BY YG GC CHLAMYDIA TRACH PROBE CANCELED: GC CHLAMYDIA TRACH PROBE 2. Diastasis recti M62.08 AMB CONSULT TO PHYSICAL THERAPY 3. Pelvic floor dysfunction M62.89 AMB CONSULT TO PHYSICAL THERAPY Satisfactory exam. Demonstrates appropriate and health-seeking behaviors toward her . Verbalizes good understanding of care schedule and the importance of coming to each visit as scheduled. Start/continue vitamins. Reviewed labs. She was encouraged to call the office with any questions or concerns. Initial labs done today. Will wait on olena until dating ultrasound confirms EDC and she is at least 10 weeks. Patient would like to start PT now for her pelvic floor (stress incontinence and difficulty emptying bladder) and her diastasis. Body mass index is 22.05 kg/m . Diet and expected weight gain discussed with patient. DEPRESSION SCREEN 05/27/2023 3:00 PM 12/17/2024 9:00 AM PHQ Depression Screening Date of PHQ exam (doc flow) 05/27/2023 12/17/2024 1. Lack of interest/pleasure 0 - Not at all 0 - Not at all 2. 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 Oxygen Saturation 100% 12/17/2024 9:01 AM CDT Inhaled Oxygen Concentration - - Weight 61.5 kg (135 lb 9.6 oz) 12/17/2024 9:01 A M CDT Height 167 cm (5' 5.75) 12/17/2024 9:01 AM CDT Body Mass Index 22.05 12/17/2024 9:01 AM CDT Plan of Treatment Upcoming Encounters Date Type Department Care Team (Late st Contact Info) Description 12/24/2024 10:30 AM CDT Ancillary Procedure [facility]ly [facility] [address] [facility] [address] [place] [address] 01/14/2025 8:50 AM CDT OB Encounter [facility] [address] [place] [address] Romi Moran MD [address] [place] [address] Health Maintenance Due Date Last Done Comments Hepatitis C screening for age 18-79 2006 Hepatitis B series for 19+ (1 of 3 - 19+ 3-dose series) 2007 COVID-19 vaccine series ( season) 2024 05/27/2023, 05/03/2022, 07/12/2021, Additional history exists Influenza Vaccine (Season Ended) 2025 05/27/2023, 05/03/2022, 05/14/2020, Additional history exists RSV vaccine for adults or (1 - Risk 1-dose series) 05/26/2025 BMI (ht and wt on same day) for age 18+ 12/17/2025 12/17/2024, 11/01/2023, 05/27/2023, Additional history exists Depression screening for age 12+ 12/17/2025 12/17/2024, 05/27/2023, 01/12/2020, Additional history exists Pap test for age 21-65 10/31/2028 , 11/01/2023, 11/24/2018, Additional history exists Tetanus booster 09/01/2029 09/01/2019, 05/23, 08/30/2010 Tdap Completed 09/01/2019, 05/23, 08/30/2010 HIV for age 15-65 Completed 12/17/2024, , 01/31/2017 Pneumococcal series for age 6-49 Aged Out No longer eligible based on patient's age to complete this topic Procedures Procedure Name Priority Date/Time Associated Diagnosis Comments URINE CULTURE Routine 12/18/2024 2:37 PM CDT Initial obstetric visit in first trimester (HC) URINALYSIS MICROSCOPIC Routine 12/18/2024 2:37 PM CDT Initial obstetric visit in first trimester (HC) CBC WITH AUTO DIFFERENTIAL Routine 12/17/2024 10:08 AM CDT Initial obstetric visit in first trimester (HC) RUBELLA IMMUNE STATUS Routine 12/17/2024 10:08 AM CDT Initial obstetric visit in first trimester (HC) ANTI HIV 1/2 Routine 12/17/2024 10:08 AM CDT Initial obstetric visit in first trimester (HC) HBSAG (HBS) Routine 12/17/2024 10:08 AM CDT Initial obstetric visit in first trimester (HC) ANTI HBC Routine 12/17/2024 10:08 AM CDT Initial obstetric visit in first trimester (HC) VARICELLA-ZOSTER V AB, IGG Routine 12/17/2024 10:08 AM CDT Initial obstetric visit in first trimester (HC) ANTIBODY SCREEN Routine 12/17/2024 10:03 AM CDT Initial obstetric visit in first trimester (HC) ABORH TYPE Routine 12/17/2024 10:03 AM CDT Initial obstetric visit in first trimester (HC) TRICHOMONAS, YUAN, AND BACTERIAL VAGINOSIS BY YG Routine 12/17/2024 10:03 AM CDT Initial obstetric visit in first trimester (HC) TREPONEMA PALLIDUM Routine 12/17/2024 10 :03 AM CDT Initial obstetric visit in first trimester (HC) GC CHLAMYDIA TRACH PROBE Routine 12/17/2024 9:40 AM CDT Screening for STD (sexually transmitted disease) HPV HIGH RISK Routine 11/01/2023 9:40 AM CDT Screening for cervical cancer from Last 3 Months or Most Recently Relevant to Health Maintenance Results * URINALYSIS, MICROSCOPIC (Order if definitely want a microscopic) [05246.1] (12/18/2024 2:37 PM CDT) RBC 0-2 0-2, None Seen /HPF 12/18/2024 11:04 PM CDT [facility] WBC 0-2 0-2, 3-5, None Seen /HPF 12/18/2024 11:04 PM CDT [facility] BACTERIA None Seen None Seen, Rare, Few Bacteria/ HPF 12/18/2024 11:04 PM CDT [facility] EPITHELIAL CELLS None Seen None Seen, Few Epi/HPF 12/18/2024 11:04 PM CDT [facility] HYALINE CASTS 0-2 0-2, 3-5 /LPF 12/18/2024 11:04 PM CDT [facility] Urine URINE SPECIMEN / Unknown Non-Blood / Unknown 12/18/2024 2:37 PM CDT 12/18/2024 2:37 PM CDT Romi Moran MD URINE Final R esult Performing Organization Address [facility] Co de Phone Number [facility] [address] [address], [place] * URINE CULTURE [52452.2] (12/18/2024 2:37 PM CDT) CULTURE <10,000 CFU/mL multiple organisms 12/20/2024 2:57 PM CDT [facility] Urine URINE SPECIMEN / Unknown Non-Blood / Unknown 12/18/2024 2:37 PM CDT 12/18/2024 2:37 PM CDT Romi Moran MD MICROBIOLOGY Final R esult Performing Organization Address [facility] Co de Phone Number [facility] [address] [address], [place] * LC VARICELLA-ZOSTER V AB, IGG (12/17/2024 10:08 AM CDT) VARICELLA ZOSTER VIRUS ANTIBODY (IGG) 13.30 S/CO [employer] [employer] Comment: Signal to Cut-off S/CO Interpretation --------- <1.00 Negative - Antibody not detected > or = 1.00 Positive - Antibody detected A positive result indicates that the patient has antibody to VZV but does not differentiate between an active or past infection. The clinical diagnosis must be interpreted in conjunction with the clinical signs and symptoms of the patient. This assay reliably measures immunity due to previous infection but may not be sensitive enough to detect antibodies induced by vaccination. Thus, a negative result in a vaccinated individual does not necessarily indicate susceptibility to VZV infection. A more sensitive test for vaccination-induced immunity is Varicella Zoster Virus Antibody Immunity Screen, ACIF. Blood BLOOD SPECIMEN / Unknown 12/17/2024 10:08 AM CDT 12/17/2024 10:09 AM CDT us Romi Moran MD LABORATORY Final R esult Performing Organization Address [facility] Co de Phone Number [facility] [address] [address], [facility] [address] * RUBELLA IMMUNE STATUS (12/17/2024 10:08 AM CDT) RUBELLA AB (IGG), IMMUNE STATUS 10.00 Index [facility]ny Tesfaye Comment: Index Interpretation ----- <0.90 Not consistent with immunity 0.90-0.99 Equivocal > or = 1.00 Consistent with immunity The presence of rubella IgG antibody suggests immunization or past or current infection with rubella virus. Blood BLOOD SPECIMEN / Unknown 12/17/2024 10:08 AM CDT 12/17/2024 10:09 AM CDT us Romi Moran MD SEND OUTS Final R esult Performing Organization Address City/[facility]/ZIP Co de Phone Number [facility] [address] [phone], [employer] [address] * HBSAG (HBS) (12/17/2024 10:08 AM CDT) HEPATITIS B SURFACE ANTIGEN NON-REACTI VE NON-REACTI VE [facility] Comment: For additional information, please refer to http://[employer])/faq/VHJ081 (This link is being provided for informational/ educational purposes only.) Blood BLOOD SPECIMEN / Unknown 12/17/2024 10:08 AM CDT 12/17/2024 10:09 AM CDT Romi Moran MD SEND OUTS Final R esult Performing Organization Address City/[facility]/ZIP Co de Phone Number [employer] [address] [facility] [place] [address], [place] [phone] [facility] [address] [facility] [place] [address] * ANTI HBC (12/17/2024 10:08 AM CDT) HEPATITIS B CORE AB TOTAL NON-REACTI VE NON-REACTI VE [facility] Comment: For additional information, please refer to http://Tab Asia.[employer]T ([employer])/faq/YTF599 (This link is being provided for informational/ educational purposes only.) Blood BLOOD SPECIMEN / Unknown 12/17/2024 10:08 AM CDT 12/17/2024 10:09 AM CDT us Romi Moran MD SEND OUTS Final R esult [employer] [facility] [address] [facility] [place] [address], [place] [phone] [facility] [address] [facility] [place] [address] * ANTI HIV 1/2 (12/17/2024 10:08 AM CDT) Pathologist [facility] HIV AG/AB, 4TH GEN NON-REACT RUBIN NON-REACT RUBIN [facility] [place] Comment: HIV-1 antigen and HIV-1/HIV-2 antibodies were not detected. There is no laboratory evidence of HIV infection. PLEASE NOTE: This information has been disclosed to you from records whose confidentiality may be protected by state law. If your state requires such protection, then the state law prohibits you from making any further disclosure of the information without the specific written consent of the person to whom it pertains, or as otherwise permitted by law. A general authorization for the release of medical or other information is NOT sufficient for this purpose. For additional information please refer to http://education.IMT ([employer])/faq/KJP597 (This link is being provided for informational/ educational purposes only.) The performance of this assay has not been clinically validated in patients less than 2 years old. Blood BLOOD SPECIMEN / Unknown 12/17/2024 10:08 AM CDT 12/17/2024 10:09 AM CDT us Romi Moran MD SEND OUTS Final R esult [employer] [facility] [address] [place] [address], [facility] [address] [place] [address] * (ABNORMAL) CBC AND DIFFERENTIAL (12/17/2024 10:08 AM CDT) Pathologist [facility] WHITE BLOOD CELL COUNT 11.5(H) 3.8 - 10.8 Thousand/u L [facility] RED BLOOD CELL COUNT 4.26 3.80 - 5.10 Million/uL [facility] HEMOGLOBIN 13.0 11.7 - 15.5 g/dL [facility] HEMATOCRIT 39.1 35.0 - 45.0 % [facility] MCV 91.8 80.0 - 100.0 fL [facility] MCH 30.5 27.0 - 33.0 pg [facility] MCHC 33.2 32.0 - 36.0 g/dL [facility] Comment: For adults, a slight decrease in the calculated MCHC value (in the range of 30 to 32 g/dL) is most likely not clinically significant; however, it should be interpreted with caution in correlation with other red cell parameters and the patient's clinical condition. RDW 12.3 11.0 - 15.0 % [facility] PLATELET COUNT 286 140 - 400 Thousand/u L [facility] MPV 11.2 7.5 - 12.5 fL [facility] ABSOLUTE NEUTROPHILS 8,947(H) 1,500 - 7,800 cells/uL [facility] ABSOLUTE LYMPHOCYTES 1,794 850 - 3,900 cells/uL [facility] ABSOLUTE MONOCYTES 679 200 - 950 cells/uL [facility] ABSOLUTE EOSINOPHILS 69 15 - 500 cells/uL [facility] ABSOLUTE BASOPHILS 12 0 - 200 cells/uL [facility] NEUTROPHILS 77.8 % [facility] LYMPHOCYTES 15.6 % [facility] MONOCYTES 5.9 % [facility] EOSINOPHILS 0.6 % [facility] BASOPHILS 0.1 % [facility] Blood BLOOD SPECIMEN / Unknown 12/17/2024 10:08 AM CDT 12/17/2024 10:09 AM CDT us Romi Moran MD HEMATOLOGY Final R esult [facility] [address] [place] [address], [facility] [address] [place] [address] * TRICHOMONAS, YUAN, AND BACTERIAL VAGINOSIS BY YG (12/17/2024 10:03 AM CDT) Pathologist [facility] YUAN SPECIES Negative Negative 10:42 PM CDT [facility] YUAN GLABRATA Negative Negative 12/17/2024 10:42 PM CDT [facility] TRICHOMONAS VVA Negative Negative 10:42 PM CDT [facility] BACTERIAL VAGINOSIS Negative Negative 12/17/2024 10:42 PM CDT [facility] Other VAGINAL SWAB / Unknown Non-Blood / Unknown 12/17/2024 10:03 AM CDT 12/17/2024 10:03 AM CDT us Romi Moran MD MICROBIOLOGY Final R esult Performing Organization Address [facility]/ZIP Co de Phone Number [facility] [address] [place] [id number], [place] * TREPONEMA PALLIDUM (12/17/2024 10:03 AM CDT) TREPONEMA PALLIDUM Non-Reacti ve Non-Reacti ve 12/17/2024 3:52 PM CDT [facility] Blood BLOOD SPECIMEN / Unknown [facility] / Unknown 12/17/2024 10:03 AM CDT 12/17/2024 10:03 AM CDT us Romi Moran MD SEND OUTS Final R esult Performing Organization Address [facility]/ZIP Co de Phone Number [facility] [address] [place] [phone], [place] * ABORH TYPE (12/17/2024 10:03 AM CDT) ABORH O Rh Positive 12/17/2024 5:24 PM CDT [facility] BLOOD BANK Blood BLOOD SPECIMEN / Unknown [facility] / Unknown 12/17/2024 10:03 AM CDT 12/17/2024 10:03 AM CDT us Romi Moran MD BLOOD BANK Final R esult [facility] BLOOD BANK [address] [place] [address], * ANTIBODY SCREEN (12/17/2024 10:03 AM CDT) ANTIBODY SCREEN Negative Negative 12/17/2024 5:40 PM CDT [facility] SPECIMEN EXPIRATION DATE/TIME 12/20/24 23:59 12/17/2024 5:40 PM CDT [facility] Blood BLOOD SPECIMEN / Unknown [facility] / Unknown 12/17/2024 10:03 AM CDT 12/17/2024 10:03 AM CDT us Romi Moran MD BLOOD BANK Final R esult Performing Organization Address City/[facility]/ZIP Co de Phone Number [facility] [address] [place] [address], * GC CHLAMYDIA TRACH PROBE (12/17/2024 9:40 AM CDT) CHLAMYDIA PROBE Negative 2:25 AM CDT [facility] N GONORRHOEAE PROBE Negative 12/18/2024 2:25 AM CDT [facility] Other ENDOCERVICAL CYTOLOGIC MATERIAL / Unknown Non-Blood / Unknown 12/17/2024 9:40 AM CDT 12/17/2024 12:27 PM CDT us Romi Moran MD MICROBIOLOGY Final R esult [facility] [address] [place] [address], * HPV HIGH RISK (11/01/2023 9:40 AM CDT) TYPE 16 Negative Negative 11/05/2023 3:22 PM CDT [facility] TYPE 18 Negative Negative 11/05/2023 3:22 PM CDT [facility] OTHER HIGH RISK TYPES Negative Negative 11/05/2023 3:22 PM CDT [facility] Other (Cervical) Non-Blood / Unknown 11/01/2023 9:40 AM CDT 11/04/2023 10:18 AM CDT Narrative [facility] - 11/05/2023 3:22 PM CDT HPV types 16, 18, 31, 33, 35, 39, 45, 51, 52, 56, 58, 59, 66 and 68 DNA were undetectable or below the pre-set threshold. Methodology: Karin Corey 4800 HPV Test Romi Moran MD MICROBIOLOGY Final R esult [facility] [address] 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
== END 2024-12-20 17:48 | disposition home or self-care (01) ==
LOC: ED 17:39
PROVIDERS: Emergency Provider Emergency Medicine Emergency Medical Services; PCP Family Medicine
DX: O67.8 Other intrapartum hemorrhage (principal); Z3A.09 9 weeks gestation of pregnancy
CPT/HCPCS: 76801; 99283; 99284

== ENCOUNTER 2024-12-30 09:33 | Outpatient (CLI) | payer BC, SELFPAY | END 2024-12-30 09:34 | disposition home or self-care (01) | PROVIDERS: PCP Family Medicine; Visit Provider Registered Nurse | DX: Z34.82 Encounter for supervision of other normal pregnancy, second trimester (principal) | CPT/HCPCS: 82565; 82570; 84156; 84443; 84450; 84460; 84520; 86706; 86803 ==

== ENCOUNTER 2025-04-05 14:20 | Outpatient (CLI) | payer BC, SELFPAY | END 2025-04-05 14:21 | disposition home or self-care (01) | LOC: NFLDREF 04-11 03:23 | PROVIDERS: PCP Family Medicine; Referring Provider Family Medicine; Visit Provider Obstetrics & Gynecology | DX: Z34.93 Encounter for supervision of normal pregnancy, unspecified, third trimester (principal) | CPT/HCPCS: 86592 ==

== ENCOUNTER 2025-04-07 08:15 | Outpatient (CLI) | payer BC, SELFPAY | END 2025-04-07 08:16 | disposition home or self-care (01) | LOC: NFLDREF 04-12 18:16 | PROVIDERS: PCP Family Medicine; Referring Provider Family Medicine; Visit Provider Obstetrics & Gynecology | DX: R73.09 Other abnormal glucose (principal) | CPT/HCPCS: 82951; 82952 ==

== ENCOUNTER 2025-04-16 11:32 | Outpatient (CLI) | payer BC, SELFPAY ==
--- NOTE | 2025-04-16 11:30 | CRLHL7_ITS ---
For Patients: As a result of the Cures Act, medical imaging exams and procedure reports are released immediately into your electronic medical record. You may view this report before your referring provider. If you have questions, please contact your health care provider. OBSTETRICAL ULTRASOUND ??? FOLLOW-UP, 04/16/2025 INDICATION: Uterine size for dates discrepancy. CLINICAL HISTORY: MAYA by Ultrasound: 06/28/2025 Gestational Age: 29 weeks 4 days COMPARISON: 02/02/2025, 12/24/2024, 12/20/2024 TECHNIQUE: Real-time geurra-scale transabdominal imaging of the fetus was performed. FINDINGS: Fetus: Single Cervix: Not visualized positioning: Vertex Amniotic Fluid: OGYO: 15.7 cm SDP: 8.5 cm Placenta technique: Transabdominal Placenta position: Anterior heart rate: 161 bpm BIOMETRY: BPD: 7.4 cm, 29 weeks 4 days, 36.1% HC: 27.6 cm, 30 weeks 1 day, 33.2% AC: 29.4 cm, 33 weeks 3 days, >97% FL: 5.7 cm, 29 weeks 5 days, 39.0% FL/AC Ratio: 19.23% HC/AC ratio: 0.94 EFW: 1813 grams; 4 lbs. 0 oz. age by this ultrasound: 30 weeks 5 days MAYA by this ultrasound: 06/20/2025 Percentile by MAYA: 96.2% IMPRESSION: 1. Sonographic gestational age is 30 weeks 5 days with sonographic due date of 06/20/2025. Sonographic age is 8 days ahead of the clinical age. 2. Estimated weight is 96th percentile. Abdominal circumference is greater than 97th percentile. 3. Residual blood products associated with the left side of the placenta measures 6.2 x 1.5 x 3.0 cm, not significantly changed. Small placental lakes again noted. BRANDT URENA M.D. Diagnostic Radiologist [email or web address] Transcribed: 4:[address]/Dictated by: Brandt Urena MD @ 04/16/2025 4:27:00 PM (Electronically Signed)
== END 2025-04-16 11:33 | disposition home or self-care (01) ==
LOC: US 11:33
PROVIDERS: PCP Family Medicine; Visit Provider Obstetrics & Gynecology
DX: O26.843 Uterine size-date discrepancy, third trimester (principal); O36.63X0 Maternal care for excessive fetal growth, third trimester, not applicable or unspecified; Z3A.29 29 weeks gestation of pregnancy
CPT/HCPCS: 76816

== ENCOUNTER 2025-05-14 10:12 | Outpatient (CLI) | payer BC, SELFPAY ==
--- NOTE | 2025-05-14 10:15 | CRLHL7_ITS ---
For Patients: As a result of the Century Cures Act, medical imaging exams and procedure reports are released immediately into your electronic medical record. You may view this report before your referring provider. If you have questions, please contact your health care provider. OB ULTRASOUND FOLLOW-UP CLINICAL HISTORY: GDM. TECHNIQUE: Real time guerra scale imaging of the fetus was performed. Transabdominal imaging performed. COMPARISON: 04/16/2025, 02/02/2025, 12/24/2024. FINDINGS: MAYA by US: 06/28/2025. GA: 33 weeks 4 days. Gestation: Single. Cervix: Not visualized. Positioning: Vertex. Amniotic Fluid: 25.04 cm GOYO. 9.0 cm SDP. Placenta: Technique: TA. Placenta Position: Anterior. Dopplers: Heart Rate: 145 bpm. BIOMETRY BPD: 8.4 cm, 33 weeks 4 days. 46.5% HC: 31.7 cm, 35 weeks 4 days. 67.0% AC: 34.3 cm, 38 weeks 1 day. >97% FL: 6.6 cm, 34 weeks 0 days. 52.2% FL/AC Ratio: 19.29% HC/AC Ratio: 0.92. EFW: 2921 grams, 6 lb 7 oz. Age by this US: 35 weeks 2 days. MAYA by this US: 06/16/2025. Percentile by MAYA: >97% IMPRESSION: 1. Sonographic gestational age 35 weeks 2 days and sonographic due date 06/16/2025. Sonographic age is 12 days ahead of the clinical age. 2. Estimated weight greater than 97th percentile. Abdominal circumference greater than 97th percentile. 3. Placental proctor is present which measures 4.3 x 1.3 x 5.2 cm, previously measuring 6.2 x 1.5 x 3.0 cm. Brandt Lomas M.D. Diagnostic Radiologist [email or web address] Transcribed: 2:05 pm DW/Dictated by: Brandt Lomas MD @ 05/14/2025 11:17:00 AM (Electronically Signed)
== END 2025-05-14 10:13 | disposition home or self-care (01) ==
LOC: US 10:13
PROVIDERS: PCP Family Medicine; Visit Provider Obstetrics & Gynecology
DX: O24.419 Gestational diabetes mellitus in pregnancy, unspecified control (principal); O36.63X0 Maternal care for excessive fetal growth, third trimester, not applicable or unspecified; Z3A.33 33 weeks gestation of pregnancy
CPT/HCPCS: 76816

== ENCOUNTER 2025-05-21 11:11 | Outpatient (CLI) | payer BC, SELFPAY ==
--- NOTE | 2025-05-21 11:30 | CRLHL7_ITS ---
For Patients: As a result of the Cures Act, medical imaging exams and procedure reports are released immediately into your electronic medical record. You may view this report before your referring provider. If you have questions, please contact your health care provider. OB ULTRASOUND MAYA by US: 06/28/2025. GA: 34 w, 4 d. Single. Comparison: Ultrasound 05/14/2025, 04/16/2025. INDICATION: Gestational diabetes mellitus in . TECHNIQUE: Real time grayscale imaging of the fetus was performed. Transabdominal. CERVIX: Not visualized. POSITIONING: Vertex. AMNIOTIC FLUID: 6.5 cm. SDP (N: greater than 2 x 1 cm) BIOPHYSICAL PROFILE: 2: Gross body movements 2: tone 2: Respiratory activity 2: Amniotic fluid SDP (N: greater than 2 x 1 cm) 8/8: Total score PLACENTA: Technique: Transabdominal. PLACENTA POSITION: Anterior. DOPPLER: heart rate: 142 bpm. IMPRESSION: 1. Normal biophysical profile score 8/8. 2. Incidental residual blood products adjacent to the left side of the placenta again noted, decreased in size, now measuring 5.7 x 0.8 x 0.6 cm, previously measuring 4.3 x 1.3 x 5.2 cm. Brandt Lomas M.D. Diagnostic Radiologist [email or web address] CARLOS/bean [place] angel/Dictated by: Brandt Lomas MD @ 05/21/2025 12:24:00 PM (Electronically Signed)
== END 2025-05-21 11:12 | disposition home or self-care (01) ==
LOC: US 11:12
PROVIDERS: PCP Family Medicine; Visit Provider Obstetrics & Gynecology
DX: O24.419 Gestational diabetes mellitus in pregnancy, unspecified control (principal); Z3A.34 34 weeks gestation of pregnancy
CPT/HCPCS: 76819

== ENCOUNTER 2025-05-28 07:27 | Outpatient (CLI) | payer BC, SELFPAY ==
--- NOTE | 2025-05-28 07:15 | CRLHL7_ITS ---
For Patients: As a result of the Cures Act, medical imaging exams and procedure reports are released immediately into your electronic medical record. You may view this report before your referring provider. If you have questions, please contact your health care provider. OBSTETRICAL ULTRASOUND ??? BIOPHYSICAL PROFILE INDICATION: Gestational diabetes. CLINICAL HISTORY: MAYA by Ultrasound: 06/28/2025 Gestational Age: 35 weeks 4 days PRIOR ULTRASOUND: 05/21/2025, 05/14/2025, 04/16/2025. TECHNIQUE: Real-time guerra-scale transabdominal imaging of the fetus was performed. FINDINGS: Fetus: Single Cervix: Not visualized positioning: Vertex Amniotic Fluid: 3.9 cm SDP BIOPHYSICAL PROFILE: Gross body movements: 2 tone: 2 Respiratory activity: 2 Amniotic fluid SDP: 2 Total score: 8 Placenta technique: Transabdominal Placenta position: Anterior heart rate: 121-152 bpm IMPRESSION: 1. Normal biophysical profile score of 8/8. 2. Collection of fluid associated with the placenta is not appreciated on the current study. BRANDT URENA M.D. Diagnostic Radiologist [email or web address] Transcribed: 9:[address]/Dictated by: Brandt Urena MD @ 05/28/2025 8:32:00 AM (Electronically Signed)
== END 2025-05-28 07:28 | disposition home or self-care (01) ==
LOC: US 07:27
PROVIDERS: PCP Family Medicine; Visit Provider Obstetrics & Gynecology
DX: O24.419 Gestational diabetes mellitus in pregnancy, unspecified control (principal); Z3A.35 35 weeks gestation of pregnancy
CPT/HCPCS: 76819

== ENCOUNTER 2025-05-28 08:57 | Outpatient (CLI) | payer BC, SELFPAY ==
[2025-05-29 10:47] LABS: Strep B DNA Probe Negative (Negative)
[2025-05-29 11:00] LABS: Strep B Susceptibility Needed? No
== END 2025-05-28 08:58 | disposition home or self-care (01) ==
LOC: NFLDREF 08:57
PROVIDERS: PCP Family Medicine; Visit Provider Obstetrics & Gynecology
DX: O24.419 Gestational diabetes mellitus in pregnancy, unspecified control (principal); Z3A.35 35 weeks gestation of pregnancy
CPT/HCPCS: 87081; 87653

== ENCOUNTER 2025-06-10 12:17 | Outpatient (CLI) | payer BC, SELFPAY ==
--- NOTE | 2025-06-10 12:15 | CRLHL7_ITS ---
For Patients: As a result of the Cures Act, medical imaging exams and procedure reports are released immediately into your electronic medical record. You may view this report before your referring provider. If you have questions, please contact your health care provider. OBSTETRICAL ULTRASOUND ??? FOLLOW-UP INDICATION: Gestational diabetes mellitus. CLINICAL HISTORY: MAYA by Ultrasound: 06/28/2025 Gestational Age: 37 weeks 3 days COMPARISON: 05/14/2025, 04/16/2025, 02/02/2025. TECHNIQUE: Real-time guerra-scale transabdominal imaging of the fetus was performed. FINDINGS: Fetus: Single Cervix: Not visualized positioning: Vertex Amniotic Fluid: GOYO: 17.8 cm 8.6 cm SDP Placenta technique: Transabdominal Placenta position: Anterior heart rate: 145 bpm BIOMETRY: BPD: 8.9 cm, 35 weeks 6 days, 26% HC: 33.4 cm, 38 weeks 2 days, 46% AC: 36.3 cm, 40 weeks 2 days, >97% FL: 7.0 cm, 36 weeks 1 day, 19% FL/AC Ratio: 19.38% HC/AC ratio: 0.92 EFW: 3533 grams; 7 lbs. 13 oz. age by this ultrasound: 37 weeks 5 days MAYA by this ultrasound: 06/26/2025 Percentile by MAYA: 85% IMPRESSION: 1. Sonographic gestational age is 37 weeks 5 days and sonographic due date is 06/26/2025. 2. Estimated weight is 85th percentile. Abdominal circumference is greater than 97th percentile. BRANDT URENA M.D. Diagnostic Radiologist [email or web address] Transcribed: 2:[address]/Dictated by: Brandt Urena MD @ 06/10/2025 1:03:00 PM (Electronically Signed)
== END 2025-06-10 12:18 | disposition home or self-care (01) ==
LOC: US 12:18
PROVIDERS: PCP Family Medicine; Visit Provider Obstetrics & Gynecology
DX: O24.419 Gestational diabetes mellitus in pregnancy, unspecified control (principal); Z3A.37 37 weeks gestation of pregnancy
CPT/HCPCS: 76816

== ENCOUNTER 2025-06-22 16:06 | Inpatient (IN) | payer BC, SELFPAY ==
[2025-06-22 16:27] VITALS: BP 132/81; PULSE 81; PULSE 84; O2SAT 96
[2025-06-22 16:32] VITALS: BMI 26.2
[2025-06-22 18:33] LABS: Hematocrit* 37.3 % (33.0-51.0); Hemoglobin* 12.6 gm/dL (12.0-16.0); Immature Granulocytes Abs Auto 0.04 K/uL (0.00-0.30); Immature Granulocytes Pct Auto 0.4 %; Lymphocytes Absolute Auto 1.70 K/uL (0.90-2.90); Mean Corpuscular HGB Conc 34 gm/dL (32-36); Mean Corpuscular Hemoglobin 31 pg (26-34); Mean Corpuscular Volume 93 fL (80-100); RDW Coefficient of Variation % 12.8 % (11.5-15.5); Red Blood Count* 4.03 m/uL (4.00-5.20); Slide Review Reflex No; White Blood Count* 9.03 K/uL (4.50-11.00)
--- NOTE | 2025-06-22 18:50 | W.PM.LDBA ---
Subjective History of Present Illness Time Seen by Provider: 22:59 Date Seen: 06/22/25 Narrative: Patient is being admitted to Labor and Delivery for IOL. She is a 35 year old at 39 1/7 weeks gestation. Her full history and physical was dictated by Peter Lentz CNM on 06/10/25. Please see this for details. Patient with scheduled IOL due to GDMA1, AMA, suspected macrosomia. Specific Issues/Plans G 3 P 2002 (2 biological children, 1 adopted child) baby girl: Undecided H&P 06/10/25 by Peter Lentz CNM #Transfer of care # GDM A1 Elevated 1 hr GTT = 195 3 hr GTT: 82/188/176/104 Diet/nutrition referral placed on 04/08/2025 Monthly US for growth ( testing form submitted) Delivery 39 0/7 - 40 6/7 weeks, with weekly testing beyond 40 weeks #Mild Polyhydramnios - resolved 05/14/25: SDP: 9.0, GOYO: 25.04 *FU in 1 week, repeat GOYO/BPP for the next 2 weeks to keep close monitoring, due to GDMA1 *05/21/25: SDP: 6.5, BPP 8/8 *05/28/25: SDP 3.9, BPP 8/8 # advanced maternal age NIPT low risk, female (no records, pt provided portal result) On ASA 81mg [x] Level 2 ultrasound on 02/02 # possible history thyroid disease TSH 1.16 on 12/30 # penicillin/amoxicillin allergy Allergy referral 04/01/2025:General approach to penicillin allergy in is to skin test and if negative wait until GBS status is known. If GBS status is positive then she should back prior to delivery for graded dose challenge. GBS is negative then she should come back after for general de labeling. Skin test was NEGATIVE that day. GBS result: negative # gestational hypertension in 1st when in labor. Baseline preeclampsia labs ordered - normal, including urine P/C ratio (0.05) ASA 81mg # history of undiagnosed depression #Suspected macrosomia 12/17/2024: Blood type O positive, antibody screen negative, hepatitis-B antigen nonreactive, hemoglobin 13.0, platelets 286, TP PA nonreactive, hepatitis-B core antibody nonreactive, hepatitis-B surface antigen nonreactive, urine culture less than 10,000 cfu/ml, varicella positive, HIV nonreactive, rubella immune, chlamydia and gonorrhea negative. Pap smear 11/01/2023: Normal, negative HPV Imagin12/20/24: 1. Large subchorionic hemorrhages measuring up to 5.3 cm. The placental edge appears lifted, a component of placental abruption can not be excluded. Advise close obstetric evaluation and follow-up. 2. Single viable intrauterine with estimated gestational age of 9 weeks and 4 days. Ultrasound 12/28/2024: Single viable intrauterine with size and dates as above. Mixed echotexture collections at the fundal and inferior margins of the placenta her consistent with small subacute subchorionic hemorrhages as they surround less than 20% circumference of the gestational sac. [place]-rump length 7.6 cm. Ultrasound E GA: 13 weeks 5 days. Ultrasound MAYA 06/26/2025. LMP MAYA 06/28/2025. Level two ultrasound 02/02/2025: No anomalies, EFW 72%, AC 85%, anterior placenta, small area of subchorionic hemorrhage within the placenta measuring 3.3 x 7.7 x 3.5 mm without active bleeding. 04/16/25: Vertex presentation, single deepest pocket of amniotic fluid 5 cm, GOYO: 15.7 cm. BPD: 36 percentile, HC: 33rd percentile, EDC: More than the 97th percentile, FL: 39 percentile. EFW: 18 13 g, 96 percentile. Comments: Known anechoic area of lateral placenta today measures 6.2 x 1.5 x 3.0 cm. Previously measuring 3.3 x 7.7 x 3.5 cm. 05/15/25: Vertex, EFW: 2921g, >97%. AC: >97%. SDP: 9.0, GOYO:25.04cm. Placental proctor 4.3x1.3x5.2cm. Previously 6.2x1.5x3.0cm. 05/21/2025: Vertex, SDP 6.5 cm, BPP 8/8 05/28/2025: vertex, SDP 3.9 cm, BPP 8/8 06/19/25: cephalic, GOYO 17.8 cm, SDP 8.6 cm, EFW 85%, AC >97%, BPD 26%, HC 46%, FL 19% Covid: 04/30/25 Flu:04/30/25 RSV: 05/14/25 TDAP: 04/16/25 OB - Problem Based A/P Additional Plan (1) GDM (gestational diabetes mellitus): Status: Acute (2) Advanced maternal age (AMA) in : Status: Acute Plan Unfortunately we have been unable to start her IOL due to staffing concerns. Cervix was checked and found favorable so plan will be to start IV Oxytocin as soon as possible overnight. NST initially with episodes of minimal variability, but prolonged monitoring has since been reassuring. At the moment, patient will be moved to a room so that hopefully she is more comfortable is able to rest until we start Oxytocin. Otherwise, BS 2 hours after dinner normal. GBS negative no need for antibiotic prophylaxis. Patient plans to get epidural hopefully prior to AROM. OB Result Labs Labs: Hemoglobin: 12.6mg/dL OB Exam Physical Exam Vital signs: Pulse BP Pulse Ox 81 132/81 96 06/22/25 16:27 06/22/25 16:27 06/22/25 16:27 Detailed Labor and Delivery Exam Patient Gravid: yes Dilation (cm): 2 Effacement (%): 75 Fetus (Single) Station: -2 Amniotic Membrane Status: intact Heart Rate Baseline: 120 Monitor Accelerations: Present Monitor Decelerations: None Director Medicare Sales Variability: Moderate (6-25)
[2025-06-22 22:01] VITALS: BP 122/72; PULSE 79; TEMP 37.1
[2025-06-23] VITALS (43 sets, daily range): BP systolic 103–137; BP diastolic 57–85; PULSE 65–100; RESP 16–18; TEMP 36.4–36.6; O2SAT 96–100
--- NOTE | 2025-06-23 02:11 | PM.OBPNL ---
Subjective Time Seen by Provider: 02:11 Date Seen: 06/23/25 Narrative: Okay Objective Vital Signs: Last Vital Signs Temp 97.6 F 06/23/25 01:54 Pulse 83 06/23/25 01:54 Resp 18 06/23/25 01:54 BP 131/66 06/23/25 01:54 Pulse Ox 96 06/23/25 01:53 Pelvic Exam Dilation (cm): 2 Effacement (%): 75 Station: -2 Contractions Monitor mode: External Contraction pattern: Irregular Contraction intensity: Moderate Assessment Assessment: induction ongoing Station: -2 Amniotic Membrane Status: SROM (23:40) Status: Category l Heart Rate Baseline: 120 Senior Living Variability: Moderate (6-25) Monitor Accelerations: Present Monitor Decelerations: None Plan Plan: SROM earlier tonight, clear fluid. Moved to labor bed, cervix rechecked at this time and unchanged from admission. Staffing adequate and will start Oxytocin now. Otherwise, continue current management. Plans for epidural.
[2025-06-23] MEDS: LACTATED RINGERS 1000 ML 1,000 ML 125 ML IV (03:00)
[2025-06-23] MEDS: OXYTOCIN 30 unit/500 ML in NS 30 UNIT/500 ML BAG IVPB (03:01)
[2025-06-23] MEDS: LACTATED RINGERS 1000 ML 1,000 ML 500 ML IV (06:52)
[2025-06-23] MEDS: ONDANSETRON 2 MG/ML inj 4 MG IV (06:53)
[2025-06-23] MEDS: LIDOCAINE 2% (PF) 5 ML VIAL EPIDURAL (06:53)
[2025-06-23] MEDS: ROPIVACAINE 0.2% 100 ml 100 ML 12 MG EPIDURAL (06:53)
--- NOTE | 2025-06-23 07:01 | PM.ANBPRC ---
[facility] Medical History (Updated 06/10/25 @ 13:24 by Dede Lentz CNM) History of gestational hypertension ?Z87.59 - Personal history of other complications of , childbirth and the puerperium (ICD-10) History of hyperthyroidism ?Z86.39 - Personal history of other endocrine, nutritional and metabolic disease (ICD-10) Surgical History (Updated 06/10/25 @ 13:24 by Dede Lentz CNM) Hx of tonsillectomy ?Z90.89 - Acquired absence of other organs (ICD-10) Family History (Updated 06/10/25 @ 13:24 by Dede Lentz CNM) Father Heart disease Social History What is your current living situation?: I presently have a place to live Problems where you live: no known problems In the past 12 months, utilities in danger of being shut off: no In past 12 months, lack of transportation kept you from medical appts, meetings, work, or getting things needed for daily living: no In the past 12 mos, have been you worried that your food would run out before you had money to buy more?: never true In the past 12 mos, the food you bought just didn't last and you didn't have money to buy more?: never true Smoking Status: Never smoker How often does anyone, including family, friends and others, physically hurt you: never How often does anyone, including family, friends and others, insult or talk down to you: never How often does anyone, including family, friends and others, threaten you with harm: never How often does anyone, including family, friends and others, scream or curse at you: never Meds Home Medications and Allergies Home Medications ?Medication ?Instructions ?Recorded ?Confirmed ?Type diphenhydramine HCl 50 mg capsule 50 mg PO QHS 12/30/24 06/22/25 History (Unisom SleepGels) docosahexaenoic acid 200 mg 600 mg PO DAILY 12/30/24 06/22/25 History capsule (Algal [place]-3 DHA) magnesium citrate 34 mg chewable 420 mg PO DAILY 12/30/24 06/22/25 History tablet docosahexaenoic acid 200 mg 200 mg PO DAILY 01/19/25 06/22/25 History capsule ( DHA) ferrous sulfate 325 mg (65 mg 325 mg PO Q OTHER DAY #30 tabs 04/05/25 06/22/25 Rx iron) tablet Held on 06/22/25. Instructions: declined Blood Glucose Meter #1 ea 04/08/25 06/22/25 Rx Test Strips #100 ea 04/08/25 06/22/25 Rx lancets #100 ea 04/08/25 06/22/25 Rx blood-glucose sensor (Dexcom G7 #3 ea 04/14/25 06/22/25 Rx Sensor device) aspirin 81 mg tablet 81 mg PO QDAY 05/14/25 06/22/25 History Bacillus coagulans 10 billion cell 1 cell PO DAILY 06/04/25 06/22/25 History capsule,delayed release (Probiotic (B. coagulans)) Allergies Allergy/AdvReac Type Severity Reaction Status Date / Time amoxicillin Allergy Mild Rash Verified 06/14/25 08:53 Penicillins Allergy Mild Rash Verified 06/14/25 08:53 Results Labs Labs: Laboratory Results - last 24 hr 06/22/25 18:24 WBC 9.03 RBC 4.03 Hgb 12.6 Hct 37.3 MCV 93 MCH 31 MCHC 34 RDW Coeff of Papa 12.8 Plt Count 236 Neut % (Auto) 73.0 H Lymph % (Auto) 19.0 L [place] % (Auto) 7.2 Eos % (Auto) 0.3 Baso % (Auto) 0.1 Neut # (Auto) 6.60 Lymph # (Auto) 1.70 [place] # (Auto) 0.70 Eos # (Auto) 0.03 Baso # (Auto) 0.01 Abs Immat Gran (auto) 0.04 Imm/Tot Granulo (auto) 0.4 Blood Type O Positive Antibody Screen NEGATIVE Vital Signs Vital Signs: Last Vital Signs Temp 97.5 F L 06/23/25 04:00 Pulse 75 06/23/25 07:00 Resp 18 06/23/25 04:00 BP 114/61 06/23/25 07:00 Pulse Ox 99 06/23/25 06:56 Weight: 71.577 kg Height: 165.1 cm Anesthesia Procedures Epidural Insertion Patient Location: OB Start Time: 06:30 Stop Time: 07:00 Start Date: 06/23/25 Stop Date: 06/23/25 Reason for Block: primary anesthetic Patient Position: sitting Performed By: Chepe Doshi Preanesthetic Checklist: IV checked, risks and benefits discussed, surgical consent, monitors and equipment checked, pre-op evaluation, timeout performed and anesthesia consent Prep: chlorhexidine gluconate Monitoring: blood pressure monitoring, rn cardiac rehab, continuous pulse oximetry and heart rate Approach: midline Vertebral Space: lumbar (1-5) Needle Type: Tuohy needle Injection Technique: continuous catheter (catheter) Needle gauge: 17 Needle Length (cm): 10 cm Needle Insertion Depth (cm): 5 Catheter Gauge: 19 Catheter Type: multi-orifice Catheter at skin depth (cm): 10 Test Dose Result: negative and lidocaine 1.5% with epinephrine 1 to 200,000
--- NOTE | 2025-06-23 08:11 | P.OBPN_ITS ---
Subjective Time Seen by Provider: 10:30 Date Seen: 06/23/25 Narrative: Eloina is a 35yo at 39w2d GA admitted for SROM who was planning for IOL yesterday. is complicated by GDMA1, AMA, history of gHTN, and suspected macrosomia. IOL has included pitocin following SROM. Patient is comfortable s/p epidural, anterior lip on last exam. I presented to bedside for delivery. Objective Exam: General: Alert and oriented, no acute distress Psych: Appropriate mood and affect Cervix: 10/100/+2 FHR: Category 1 at present, recent history of category 2 fo variable and early decelerations that did resolve with position changes. [place]: Contractions q2-3m Vital Signs: Last Vital Signs Temp 97.6 F 06/23/25 06:31 Pulse 80 06/23/25 07:54 Resp 18 06/23/25 06:31 BP 120/65 06/23/25 07:54 Pulse Ox 99 06/23/25 06:56 Pelvic Exam Dilation (cm): 2 Effacement (%): 75 Station: -2 Contractions Monitor mode: External Contraction pattern: Irregular Contraction intensity: Moderate Assessment Station: -2 Amniotic Membrane Status: SROM (23:40) Status: Category l Heart Rate Baseline: 120 Monitor Accelerations: Present Monitor Decelerations: None Plan Plan: Eloina is a 35yo at 39w2d GA admitted for SROM who was planning for IOL yesterday. is complicated by GDMA1, AMA, history of gHTN, and suspected macrosomia. SROM occurred yesterday evening. Labor has been augmented with Pitocin. Patient is now completely dilated, plan to start 2nd stage. Blood type O positive, GBS negative.
--- NOTE | 2025-06-23 12:02 | W.PM.VAGD1_ITS ---
Procedure Procedure Done: Global Procedure Details: Normal spontaneous vaginal delivery Events: GDMA1, Labor Augmentation, AMA and Other (Suspected macrosomia, History of gestational HTN) Intrapartal Events: Labor Augmentation Delivery augmentation: pitocin Delivery monitor: external FHT Route of delivery: Laceration description: None Estimated blood loss (mL): 100 Anesthesia type: Epidural Disposition: floor Complications: None Narrative: Eloina is a 35yo at 39w2d GA admitted for SROM who was planning for IOL yesterday. is complicated by GDMA1, AMA, history of gHTN, and suspected macrosomia. heart tones on admission were category 1. Her labor was augmented with Pitocin and epidural was utilized for pain management. Status of bag of peter: SROM occurred at 2340 on 06/22, clear fluid. heart tones during active labor were category 1 and 2 for periods of recurrent variable decelerations that improved with maternal repositioning. She was complete at 1028 and started pushing at 1030. She made excellent descent throughout the second stage of labor, and had a normal spontaneous vaginal delivery at 1045. heart tones during second stage of labor were category 2 for recurrent variable decelerations, with rapid return to normal baseline. Baby delivered OA, restituted LYNDA and the anterior shoulder failed to deliver with f irst pushing effort at the end of a contraction. Patient was repositioned where she was laid back and legs brought into lithotomy, where anterior shoulder then delivered with next maternal push with gentle downward traction. Posterior shoulder delivered without difficulty, thought trunk was noted to be snug to perineum and required gentle traction to deliver the body. Nuchal cord: absent. The cord was clamped and cut after delayed cord clamping. Active management of the third stage occurred with IV pitocin and gentle cord traction and the placenta delivered spontaneous and intact at 1109. Cord gases sent: no Cord blood sent for infant ABO: no details: - Liveborn female fetus at 1045 - weight pending - APGARs were 8 and 9 at 1 and 5 minutes respectively Perineum and vagina were inspected, and the following lacerations were noted: none. No repair was required. Excellent hemostasis was noted. The following counts were correct: sponges, needles, instruments. Mother and infant in stable condition following the . [place] Gender: Male presentation: vertex Placental Delivery Description: Spontaneous Cord Description: 3 Vessels total score - 1 minute: 8 total score - 5 minute: 9
[2025-06-23] MEDS: IBUPROFEN 600 MG TABLET PO ×2 (12:37→20:53)
[2025-06-23] MEDS: DOCUSATE SODIUM 100 MG CAPSULE PO (12:37)
[2025-06-24] MEDS: ACETAMINOPHEN 500 MG TABLET 1000 MG PO ×2 (01:21→09:07)
[2025-06-24 01:22] VITALS: BP 105/69; PULSE 79; RESP 16; TEMP 36.5; O2SAT 95
[2025-06-24 04:48] VITALS: BP 105/69; PULSE 69; RESP 16; TEMP 36.7; O2SAT 95
[2025-06-24] MEDS: IBUPROFEN 600 MG TABLET PO (06:32)
[2025-06-24 07:05] LABS: Hemoglobin* 11.7 gm/dL (12.0-16.0)
[2025-06-24 08:47] VITALS: BP 115/79; PULSE 78; RESP 16; O2SAT 98
--- NOTE | 2025-06-24 10:51 | P.DS_ITS ---
DS: Providers Provider Date Seen: 06/24/25 Date of admission: 06/22/25 16:06 Primary care physician: Romi Moran MD Admitting Clinician: Diana Méndez MD Attending Physician on discharge: Dug[place] JUSTICE Date of Discharge: 06/24/25 DS: Diagnosis Discharge Diagnosis (1) (normal spontaneous vaginal delivery): Status: Acute (2) care and examination of lactating mother: Status: Acute Exam Narrative: Exam Narrative: GENERAL APPEARANCE:? normal affect, alert, no distress MOOD:? appropriate ABDOMEN:? soft, non-tender the uterine fundus is 2 finger breadths below Umbilicus, Midline and is appropriate for the stage of recovery. EXTREMITIES:? normal and no edema Const: Vital Signs, click to edit/add: Vital Signs - 24 hr 06/23/25 10:54 06/23/25 11:10 06/23/25 11:24 Temperature Pulse Rate 75 72 75 Pulse Rate [Blood Pressure Cuff] Respiratory Rate Blood Pressure 125/73 136/66 117/64 Blood Pressure [Le ft Arm] Pulse Oximetry Oxygen Delivery Me thod 06/23/25 11:39 06/23/25 11:56 06/23/25 12:11 Temperature 97.9 F Pulse Rate 74 66 Pulse Rate [Blood Pressure Cuff] Respiratory Rate 16 Blood Pressure 117/74 107/63 Blood Pressure [Le ft Arm] Pulse Oximetry Oxygen Delivery Me thod 06/23/25 12:24 06/23/25 12:39 06/23/25 12:54 Temperature Pulse Rate 89 74 65 Pulse Rate [Blood Pressure Cuff] Respiratory Rate Blood Pressure 137/76 118/68 120/65 Blood Pressure [Le ft Arm] Pulse Oximetry Oxygen Delivery Me thod 06/23/25 13:09 06/23/25 15:05 06/23/25 20:51 Temperature 97.6 F 97.7 F Pulse Rate 67 Pulse Rate [Blood Pressure Cuff] 82 72 Respiratory Rate 16 16 Blood Pressure 129/67 Blood Pressure [Le ft Arm] 116/73 119/78 Pulse Oximetry 98 Oxygen Delivery Me thod Room Air Room Air 06/24/25 01:22 06/24/25 04:48 06/24/25 08:47 Temperature 97.7 F 98.1 F Pulse Rate Pulse Rate [Blood Pressure Cuff] 79 69 78 Respiratory Rate 16 16 16 Blood Pressure Blood Pressure [Le ft Arm] 105/69 105/69 115/79 Pulse Oximetry 95 95 98 Oxygen Delivery Me thod Room Air Room Air Room Air OB - DS: Summary Hospital Course Hospital Course: Eloina is a 89?y.o. G 3 P 3003 who was admitted to [facility] for IOL for AMA, GDMA1, and suspected macrosomia.??She had a NVD that was uncomplicated. The patient feels well.??The pain is well controlled with current medications.??She has no new complaints.?She is breast?feeding?and reports things are going [well]. the patient has done well.??Vitals have been stable.??She has?remained?afebrile.??Has a good appetite,?is?tolerating a general diet.??She is voiding without difficulty.??She is passing gas and has not had a bowel movement.??She is ambulating and denies any dizziness.??Has?small?amount of rubra lochia. She is uncertain of plan for prevention.? ?? Problems: none? ?? plan:? Discharge?home with baby.? Follow up in 2 weeks and?6 weeks.? Pt is planning to do the 2 hour DM screen at her 6 week PP. Fasting glucose this morning was normal at 91. , may see if needed? Hgb 11.7. ? Pt notified she should stop taking her iron supplemet. ? Peripartum Data Infant delivery method: Vaginal Laceration description: None Episiotomy description: None complications: none [place] Infant Gender: Male Infant Discharge Plan: Home Status at Discharge Functional status at discharge: independent ambulation Overall status at discharge: patient is progressing back to baseline Time Spent with Patient Time attestation: Total time spent providing and/or coordinating discharge services: Time spent: Less than 30 minutes Discharge Plan Discharge Disposition: Home, Self-Care Date of Admission: 06/22/25 16:06 Attending Provider on Discharge: Iris Esqueda Consulting Providers: Diana Méndez; Sendy Haley Primary Care Provider: Romi Moran Condition: Stable Anticipated Discharge Date/Time: 06/24/25 10:56 Discharge Medications: Continued DHA 200 mg capsule 200 mg PO DAILY Probiotic (B. coagulans) 10 billion cell capsule,delayed release(DR/EC) 1 cell PO DAILY Algal [place]-3 DHA 200 mg capsule 600 mg PO DAILY magnesium citrate 34 mg tablet,chewable 420 mg PO DAILY Discontinued ferrous sulfate 325 mg (65 mg iron) tablet 325 mg PO Q OTHER DAY Qty: 30 2RF aspirin 81 mg tablet 81 mg PO QDAY diphenhydramine HCl [Unisom SleepGels] 50 mg capsule 50 mg PO QHS (DME) lancets Misc See Rx Instructions .MEDSUPPLY Qty: 100 3RF Rx Instructions: Test blood sugar 4 times daily. (DME) Test Strips Misc See Rx Instructions .MEDSUPPLY Qty: 100 3RF Rx Instructions: Test blood sugar 4 times daily. (DME) Blood Glucose Meter Misc See Rx Instructions .MEDSUPPLY Qty: 1 0RF Rx Instructions: dispense one meter per insurance coverage (DME) Dexcom G7 Sensor Device See Rx Instructions .Route Qty: 3 3RF Rx Instructions: dispense as directed. 3 sensors with 3 refills Discharge Orders: Discharge Order (Routine); Ordered 06/24/25 Ordered By: Iris Esqueda Patient Education: OB Over the Counter Medication Information, OB Vaginal/Breast Feeding Additional Instructions: Discharge instructions were reviewed with the patient including signs and symptoms of infection and home going medications Nothing vaginally for 6 weeks: no tampons or intercourse Do not drive while taking narcotic pain medication(s) Off Work or School for 6 weeks Symptoms to report to doctor: * Bleeding that saturates more than one pad per hour * Passing clots larger than the size of a golf ball * Pain not relieved by prescribed medication * Fever above 100.4 degrees Fahrenheit * A foul vaginal odor * Difficulty in emotions, mood, and functions * Thoughts of hurting yourself and/or * Painful, reddened area in your breast * Any drainage, redness, or tenderness in your IV/epidural site * Severe headache that doesn't improve after taking medications * Changes in vision, including temporary loss of vision, blurred vision, and/or light sensitivity * Upper abdominal pain (usually under ribs on the right side) * Decrease in urination or painful, frequent urinating * Chest pain * Shortness of breath * Tenderness or pain with redness and/swelling in the calf(s) of your leg 2-week visit: discuss feeding concerns, review control options and screen for anxiety/depression. 6-week visit for an annual exam. consultation services are available to all mothers and babies for the first year after delivery.? To make an appointment, please call [phone]. Activity Level: Activity as Tolerated and No strenuous activity Discharge Diet: Regular Follow Up Appointments: [facility] [Provider Group] Forms: [facility] Info Instructions
--- NOTE | 2025-06-24 14:44 | PM.ANPOST ---
Post Anesthesia Note Post Anesthesia Note Patient seen: Inpatient Respiratory Status: adequate Cardiovascular Status: adequate Mental Status: baseline Pain: adequate Temp: baseline Anesthetic awareness: N/A Complications: none Follow care: none
== END 2025-06-24 15:30 | disposition home or self-care (01) | DRG 560 ==
PROVIDERS: Obstetrics & Gynecology; Admitting Provider Obstetrics & Gynecology; PCP Family Medicine; Visit Provider Obstetrics & Gynecology
DX: O24.429 Gestational diabetes mellitus in childbirth, unspecified control (principal); O40.3XX0 Polyhydramnios, third trimester, not applicable or unspecified; Z37.0 Single live birth; Z3A.39 39 weeks gestation of pregnancy
CPT/HCPCS: 01967; 36415; 82962; 85018; 85025; 86592; 86850; 86900; 86901; A9270; J2405; J2795; J7120

== ENCOUNTER 2025-07-08 09:41 | Outpatient (CLI) | payer BC, SELFPAY ==
--- NOTE | 2025-07-08 13:59 | W.PM.LAC.MC ---
Consult Note - Mom Date of Visit Date of visit: 07/08/25 Reason for consultation: Assistance Needed Visit Code: Visit Patient's Information Phone number: [phone] : 3 Para: 3 Allergies amoxicillin Allergy (Mild, Verified 07/06/25 11:04) Rash Penicillins Allergy (Mild, Verified 07/06/25 11:04) Rash Mother's Medical History: Medical History (Updated 07/06/25 @ 15:05 by Meg Lopez CNP) Penicillin allergy ?Z88.0 - Allergy status to penicillin (ICD-10) Anemia affecting ?O99.019 - Anemia complicating , unspecified trimester (ICD-10) GDM (gestational diabetes mellitus) ?O24.419 - Gestational diabetes mellitus in , unspecified control (ICD-10) Polyhydramnios affecting ?O40.9XX0 - Polyhydramnios, unspecified trimester, not applicable or unspecified (ICD-10) History of gestational hypertension ?Z87.59 - Personal history of other complications of , childbirth and the puerperium (ICD-10) History of hyperthyroidism ?Z86.39 - Personal history of other endocrine, nutritional and metabolic disease (ICD-10) 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, 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 Delivery Information Delivery type: Vaginal Gestational Age: 39+2 Gestational Weight For Age: AGA Weight: 3.57 kg Discharge Weight: 3.416 kg Percentage weight loss: 4.4 Baby's Information Baby's Age at Visit: 15 days Baby's Provider or Clinic: [facility] Jaundice: No Past Experience Past Experience: Yes Current Frequency of Day Feedings: q 2 hrs, wakes self for most feeding Frequency of Night Feedings: q3-4 hrs Both Breasts: Yes Suck: strong Latch: seems decent, slighly uncomfortable on the left Length of Time: about 10 min ea side Goals: as long as possible Pumping Pumping: No Supplementing EBM Supplement: No Formula Supplement: No Baby Elimination Number of Wet Diapers a Day: most feeding Number of BM a Day: 3-5/day Breast/Nipple Condition Breast Information: Breasts are symmetrical with rounded lower quadrants, intramammary distance is less than 1.5 inches. No erythema. Nipples are supple, everted prior to feeding. Over the last few days, mom has not felt as full in her breasts Breast Shape: Round Engorgement: No Maternal Nipple Condition - Left: Common Nipple Maternal Nipple Condition - Right: Common Nipple Sore Nipples: Yes Interventions for Sore Nipples: Lansinoh/Nipple Cream Baby Assessment Skin: Normal Tongue/frenulum: Restricted mid-range Palate: Average Lips: Relaxed, Symmetrical and Tight labial frenulum Jaw Alignment: Symmetrical Mucosa: [place], moist Onsite Observation Pre-Feed weight: 3.502 kg Post-Feed weight: 3.53 kg Milk Transferred (mL): 28 Position: Cross cradle Attachment/latch-on achieved: With difficulty Suck pattern: Extended suck phase and Extended rest phase, lots of stimulation to keep baby nursing Swallow: Audible, consistent Behavior following feed: Alert, content Pre-Nursing Left Nipple: Within Normal Limits Pre-Nursing Right Nipple: Within Normal Limits Post-Nursing Left Nipple: Within Normal Limits Post-Nursing Right Nipple: Within Normal Limits Assessments/Interventions Assessments/Interventions: Power has gained 1.5 oz from clinic visit ([facility]) 3 days ago; is not yet back to weight at 15 days. Power latched? to mom's RIGHT breast, latched easily, but needing relatching for a deep latch and stayed nursing for 6.5 minutes. Transferred 14 ml of milk Power then latched to mom's LEFT breast, latched easily and more deeply this time, and nursed for another 5 minutes. Transferred 14 ml of milk before falling asleep. After about 10 minutes, power alert again and relatched to LEFT breast, nursed another 6 minutes but transferred 0 ml of milk Power needed gentle support to stay latched deeply and stimulation to keep awake for feeding. Education provided: Early feeding cues to maximize timing of latching, Asymmetric latch technique for wide/deep latch to increase milk, Transfer for baby and increase comfort for mom, Supply/demand nature of milk supply, Need for frequent stimulation/milk removal and Pumping for milk management Feeding Plan: Discussed caloric needs of baby and feeding plan based on this feeding; concerned baby is not getting enough at ea feeding. Unclear if it is a low milk supply for mom, poor transfer for baby, or a bit of both. Discussed concern of renewed bleeding and to be very watchful of that; if bleeding continues bright red blood, if she feels ill, or accompanied by cramping - seek care re: concern for retained products of conception as this can disrupt a milk supply. Feed baby every 2-3 hours, offer both breasts ea feeding Breastfeed for 5-10 min on each breast, listening for active swallowing Pump both breasts for: 15-20? minutes after 3 feedings/day to have extra milk to offer baby. If getting <1/2 oz ea breast, then try to pump after as many feedings as possible to build supply; if getting > 1 oz ea breast may only need to pump 3-4 times/day to have EBM for baby If pump in place of a , pump a full 20 minutes if pumping instead of Feed baby 15-30 ml of pumped milk and/or formula every 2-3 hours based on feeding cues Use a syringe/feeding tube, cup, or bottle for feedings based on preference Rest, and repeat every 2-3 hours, watch for early feeding cues Try skin to skin to increase milk production Discussed role of slight tongue tie in feedings; mom having minimal pain and nipples are rounded after feeding Will continue to watch and assess this as a factor in baby's feeding ability Follow-Up Suggested follow up: Appointment in 1-3 days Time Spent Time spent with patient (min): 90 Meds Home Medications and Allergies Home Medications ?Medication ?Instructions ?Recorded ?Confirmed ?Type docosahexaenoic acid 200 mg 600 mg PO DAILY 12/30/24 07/06/25 History capsule (Algal [place]-3 DHA) magnesium citrate 34 mg chewable 420 mg PO DAILY 12/30/24 07/06/25 History tablet docosahexaenoic acid 200 mg 200 mg PO DAILY 01/19/25 07/06/25 History capsule ( DHA) Bacillus coagulans 10 billion cell 1 cell PO DAILY 06/04/25 07/06/25 History capsule,delayed release (Probiotic (B. coagulans)) cholecalciferol (vitamin D3) 25 25 mcg PO QDAY 07/06/25 07/06/25 History mcg (1,000 unit) capsule Allergies Allergy/AdvReac Type Severity Reaction Status Date / Time amoxicillin Allergy Mild Rash Verified 07/06/25 11:04 Penicillins Allergy Mild Rash Verified 07/06/25 11:04
== END 2025-07-08 09:42 | disposition home or self-care (01) ==
LOC: OB LAC 09:42
PROVIDERS: PCP Family Medicine; Visit Provider Family Medicine
DX: Z39.1 Encounter for care and examination of lactating mother (principal)
CPT/HCPCS: G0463

== ENCOUNTER 2025-07-12 11:24 | Outpatient (CLI) | payer BC, SELFPAY ==
--- NOTE | 2025-07-12 15:22 | W.PM.LAC.MF ---
Follow-Up Note: Mom Date of visit Date of visit: 07/12/25 Reason for consultation: Assistance Needed (f/u) Visit Code: Visit Patient's Information Allergies amoxicillin Allergy (Mild, Verified 07/06/25 11:04) Rash Penicillins Allergy (Mild, Verified 07/06/25 11:04) Rash Delivery Information Delivery type: Vaginal Gestational Age: 39+2 Gestational Weight For Age: AGA Weight: 3.57 kg Last Weight: 3.416 kg Baby's Information Baby's name: Sabina Baby's Age at Visit: 19 days Baby's Provider or Clinic: [facility] Current Frequency of Day Feedings: q2-3 hrs Frequency of Night Feedings: q3 hrs Both Breasts: Yes Suck: strong, more engaged Latch: deep, painful on LEFT though Length of Time: 10-15 min ea side Pumping Pumping: Yes (3x/day) Quantity Pumped: 1-2 oz/session after feedings Supplementing EBM Supplement: Yes (a few times) Formula Supplement: No Baby Elimination Number of Wet Diapers a Day: ea feeding Number of BM a Day: 5-7x/day, increase in volume from last week Breast/Nipple Assessment Breast/Nipple Assessment: Breasts are symmetrical with rounded lower quadrants, intramammary distance is less than 1.5 inches. No erythema. Nipples are supple, everted prior to feeding. Mom feels more full in last few days than when she was in last week. Nipples measured for flange size as mom is having pain with pumping. Nipples measure 20mm bilaterally; has been using a 28mm flange Discussed appropriate size (21-24mm) based on measurement Breast Shape: Round Maternal Nipple Condition - Left: Common Nipple and Other (milk bleb noted on left nipple) Maternal Nipple Condition - Right: Common Nipple Sore Nipples: Yes (left) Onsite Observation Pre-feed weight: 3.632 kg Post-Feed weight: 3.734 kg Milk Transferred (mL): 102 Pre-Nursing Left Nipple: Within Normal Limits Pre-Nursing Right Nipple: Within Normal Limits Post-Nursing Left Nipple: Within Normal Limits Post-Nursing Right Nipple: Within Normal Limits Assessments/Interventions Assessments/Interventions: Babe latched? to mom's LEFT breast, latched easily and? vigorously and stayed nursing for 11 minutes. Transferred 48 ml of milk (compared to 14 ml last week) Babe then latched to mom's RIGHT breast, latched equally well and nursed for another 9 minutes. Transferred 54 ml of milk (compared to 14 ml last week) Total volume transferred: 102 ml Babe needed minimal support to stay latched. Education provided: Early feeding cues to maximize timing of latching, Supply/demand nature of milk supply ( Continue with current feeding plan; continue with current pumping routine as desired to have extra milk available as needed), Sore nipple treatment options (milk bleb treatment), Pumping for milk management and Milk collection, storage Handouts Provided: Managing a plugged duct to help with milk bleb Follow-Up Suggested follow up: Appointment as needed Time Spent Time spent with patient (min): 60 Meds Home Medications and Allergies Home Medications ?Medication ?Instructions ?Recorded ?Confirmed ?Type docosahexaenoic acid 200 mg 600 mg PO DAILY 12/30/24 07/06/25 History capsule (Algal [place]-3 DHA) magnesium citrate 34 mg chewable 420 mg PO DAILY 12/30/24 07/06/25 History tablet docosahexaenoic acid 200 mg 200 mg PO DAILY 01/19/25 07/06/25 History capsule ( DHA) Bacillus coagulans 10 billion cell 1 cell PO DAILY 06/04/25 07/06/25 History capsule,delayed release (Probiotic (B. coagulans)) cholecalciferol (vitamin D3) 25 25 mcg PO QDAY 07/06/25 07/06/25 History mcg (1,000 unit) capsule Allergies Allergy/AdvReac Type Severity Reaction Status Date / Time amoxicillin Allergy Mild Rash Verified 07/06/25 11:04 Penicillins Allergy Mild Rash Verified 07/06/25 11:04
== END 2025-07-12 11:25 | disposition home or self-care (01) ==
LOC: OB LAC 11:25
PROVIDERS: PCP Family Medicine; Visit Provider Obstetrics & Gynecology
DX: Z39.1 Encounter for care and examination of lactating mother (principal)
CPT/HCPCS: G0463